=== PATIENT | female | born 1950 | race Caucasian/White ===

== ENCOUNTER → 2016-08-10 | Outpatient (CLI) | payer OTHER ==
--- NOTE | 2016-08-10 11:45 | BD ---
EXAMINATION TYPE: MG DEXA axial skeleton. DATE OF EXAM: 08/10/2016 9:05 AM COMPARISON: NONE CLINICAL HISTORY: Z78.0 POST MENOPAUSAL WITH OUT HRT Height: 50 Weight: 135 FRAX RISK QUESTIONS: Alcohol (3 or more units per day): NO Family History (Parent hip fracture): NO Glucocorticoids (More than 3mos): NO (Ex: prednisone, prednisolone, methylprednisolone, dexamethasone, and hydrocortisone). History of Fracture in Adulthood: NO Secondary Osteoporosis: NO 1. Type 1 Diabetes: NO 2. Hyperthyroidism: NO 3. Menopause before 45: YES 4. Malnutrition: NO 5. Chronic liver disease: NO Rheumatoid Arthritis: NO Current Tobacco Use: YES RISK FACTORS HISTORY OF: Family History of Osteoporosis: NO Smoke tobacco: YES, BUT CUTTING BACK Drink Alcohol: NO Active: NOT REALLY Diet low in dairy products/other sources of calcium: NO Postmenopausal woman: TOTAL HYST AT AGE 24 YRS Lost more than 2 inches in height since high school: YES Adrenal Insufficiency: NO MEDICATIONS: Additional Medications: BP MEDS, CALCIUM WITH D Additional History: HAD STROKE DECEMBER 2014 EXAM MEASUREMENTS: Bone mineral densitometry was performed using the [email or web address] System. Bone mineral density as measured about the Lumbar spine is: ----- L1-L4(G/cm2): 0.934 T Score Values are as follows: ----- L1: 0.0 ----- L2: -3.2 ----- L3: -2.4 ----- L4: -2.5 ----- L1-L4: -2.1 Bone mineral density IS HER FIRST BONE DENSITY SCAN FOR CASSANDRA BAEZ Bone mineral density about the R hip (g/cm2): 0.828 Bone mineral density about the L hip (g/cm2): 0.840 T Score values are as follows: -----R Neck: -1.5 -----L Neck: -1.4 -----R Intertrochanter: -1.9 -----L Intertrochanter: -1.7 Bone mineral density IS HER FIRST BONE DENSITY STUDY WITH CASSANDRA TELLO SANDSON FRAX %'S: FOR MAJOR OSTEOPOROTIC FX: 9.0%.....FOR HIP FX: 1.5% PROBABILITY OF FX IN 10 Y RS TIME IMPRESSION: Osteoporosis (T Score less than -2.5) as noted by T Score values at the There is increased fracture risk and therapy is usually indicated based on age. Re-Screen 1-2 years. FOR L2 OF HER SPINE NOTE: T-SCORE=SD OF THE YOUNG ADULT MEAN.
--- NOTE | 2016-08-11 11:08 | MM ---
Reason for exam: screening (asymptomatic). Last mammogram was performed 1 year and 1 month ago. History: Patient is postmenopausal and is nulliparous. Family history of breast cancer in maternal aunt, breast cancer in mother, and breast cancer in sister. Physical Findings: A clinical breast exam by your physician is recommended on an annual basis and results should be correlated with mammographic findings. MG Screening Mammo w CAD Bilateral CC and MLO view(s) were taken. Prior study comparison: July 14, 2015, bilateral MG 3d diag mammo w/cad SEBAS. January 18, 2014, bilateral MG screening mammo w CAD. The breast tissue is heterogeneously dense. This may lower the sensitivity of mammography. Finding: There are typically benign vascular, round, linear calcifications in both breasts. There is no discrete abnormality. ASSESSMENT: Benign, BI-RAD 2 RECOMMENDATION: Routine screening mammogram of both breasts in 1 year.
== END | disposition home or self-care (01) ==
LOC: RADMAMWWP 08:25
PROVIDERS: ATTEND Family Medicine
DX: Z12.31 Encounter for screening mammogram for malignant neoplasm of breast (principal); M81.0 Age-related osteoporosis without current pathological fracture; Z78.0 Asymptomatic menopausal state
CPT/HCPCS: 77080; G0202

== ENCOUNTER → 2016-09-25 | Outpatient (CLI) | payer OTHER ==
--- NOTE | 2016-09-26 15:50 | PE ---
EXAMINATION TYPE: PET CT fusion skull to thigh DATE OF EXAM: 09/25/2016 10:16 AM COMPARISON: Report from [facility] labeled with the patient's name dated 07/07/2016 Prior PET/CT: None at this location HISTORY: Abnormal chest CT right upper lobe TECHNIQUE: Following the intravenous administration of 15.37 mCi of F-18 FDG, whole body images are performed from the skull base to the midthigh. Images are reviewed on the computer in the coronal, a xial, and sagittal planes. Reconstructed rotating images are created on independent workstation and reviewed on the computer. A localization and attenuation correction CT is performed in conjunction with the PET scan. DLP: 3169 mGycm SCAN: Initial Scan Blood glucose: 88 mg/dL Average Mediastinum SUV: 1.5 Average Liver SUV: 2.1 FINDINGS: NECK: No abnormal uptake. THORAX: There is intermediate uptake in the section of pleural thickening with calcification in the p osterior right upper lobe. This has an SUV value 1.4. This is nonspecific. Findings are more suggesti ve for inflammatory process. Low metabolic activity neoplasm cannot be excluded. Monitoring is recomm ended with a follow-up CT recommended in 6 months. If there is change, repeat PET/CT could be perform ed. No abnormal mediastinal uptake is evident. ABDOMEN: No abnormal uptake PELVIS: No abnormal uptake OSSEOUS STRUCTURES: No abnormal uptake LOCALIZATION CT: The ascending thoracic aorta at the level of main pulmonary artery measures 3.4 cm. The main pulmonary artery bifurcation is 2.3 cm. Note is made of coronary artery calcification. Hiata l hernia is present. The thickening and calcification within the posterior right apex is evident measures approximately 2. 5 x 1.7 cm on the localization CT. COMPARISON: Images are unavailable. IMPRESSION: 1. Intermediate uptake within the area of pleural thickening and parenchymal density in the posterior right upper lobe with associated calcification. Findings are suggestive for an inflammatory process. Monitoring for stability is recommended with follow-up CT chest in 6 months. Should there be additio nal changes, repeat PET/CT could be that time.
== END | disposition home or self-care (01) ==
LOC: RADPETMAIN 07:08
PROVIDERS: ATTEND Family Medicine
DX: J92.9 Pleural plaque without asbestos (principal); J98.4 Other disorders of lung
CPT/HCPCS: 78815; A9552

== ENCOUNTER → 2016-10-19 | Outpatient (CLI) | payer OTHER ==
[2016-10-19 12:56] LABS: Blood Urea Nitrogen 14 mg/dL (7-17); Non-African American GFR(MDRD) 59 (>60 ml/min/1.73 sqM)
--- NOTE | 2016-10-19 14:22 | CT ---
EXAMINATION TYPE: CT angio abd aorta wo/w con DATE OF EXAM: 10/19/2016 2:02 PM HISTORY: atherosclerosis and abdominal aortic aneurysm per order. History of hypertension per patient . CT DLP: 1291mGycm Automated Exposure Control for Dose Reduction was Utilized. CONTRAST: CTA scan of the abdomen and pelvis is performed without oral and without and with IV Contrast, patien t injected with 80 mL of Visipaque 320. Three-D reconstructed images are created on independent works tation and reviewed. COMPARISON: Renal ultrasound October 03, 2015.. FINDINGS: VASCULAR: Noncontrast images show mild eccentric calcified plaque in the visualized descending thorac ic aorta. There is more moderate eccentric calcified plaque in the abdominal aorta with moderate to s evere calcified plaque extending into common as well as internal and external iliac arterial branch v essels. Calcified plaque extends to the common femoral arteries in the bilateral groin. There is no e vidence for greater than 3 cm aneurysm. There is more focal calcified lesion or plaque in the abdomin al aorta just pass near origin of the renal arteries seen best on axial image 31 noncontrast study ca using significant stenosis at this level. On sagittal images there is some low density in heterogeneo us calcification. This begins just above SMA origin. Lesion measures 3.1 cm in length on sagittal veronica ge 81 series 13 x 1.5 cm in AP diameter. Patent lumen is narrowed to 4mm at this level. No linear hyp odensity to suggest dissection is present. LUNG BASES: There is some right lateral basilar scarring. LIVER/GB: No significant abnormality is appreciated. PANCREAS: No significant abnormality is seen. SPLEEN: No significant abnormality is seen. ADRENALS: No significant abnormality is seen. KIDNEYS: There is asymmetric significant atrophy of the left kidney. There is probable significant st enosis at origin of left renal artery seen best on sagittal image 86. End-stage kidney is noted uncha nged from renal ultrasound October 03, 2015. BOWEL: A moderate size hiatal hernia is present. Sigmoid colonic diverticulosis is present. There is no CT evidence for acute diverticulitis. UTERUS/ADNEXA: Uterus is surgically absent or markedly atrophic in appearance. LYMPH NODES: No greater than 1cm abdominal or pelvic lymph nodes are appreciated. OSSEOUS STRUCTURES: There is healing mild to moderate compression type fracture anterior superior L1 endplate with lucency and sclerosis present, vacuum disc phenomenon in the adjacent disc space is not ed. OTHER: No significant additional abnormality is seen. IMPRESSION: 1. No abdominal aortic aneurysm. Moderate calcified plaque in the abdominal aorta with more moderate to severe plaque and iliac branch vessels of the pelvis. There is more focal prominent calcified lesi on probable plaque causing significant stenosis in the mid abdominal aorta from just above SMA origin through the origin of the bilateral renal arteries causing stenosis estimated 80% vascular lumen. A calcified mass or neoplasm is felt less likely but not entirely excluded given the eccentric prominen ce at this level. 2. There is asymmetric end-stage atrophy of left kidney redemonstrated. 3. Subacute or healing mild to moderate compression type fracture involving anterior superior L1 endp late is felt present.
== END | disposition home or self-care (01) ==
LOC: RADCTMAIN 12:17
PROVIDERS: ATTEND Thoracic Surgery (Cardiothoracic Vascular Surgery)
DX: I70.0 Atherosclerosis of aorta (principal); N26.1 Atrophy of kidney (terminal)
CPT/HCPCS: 82565; 84520; 75635; 36415; Q9967

== ENCOUNTER → 2016-12-29 | Outpatient (CLI) | payer OTHER ==
[2016-12-29 11:09] LABS: Blood Urea Nitrogen 12 mg/dL (7-17); Non-African American GFR(MDRD) 60 (>60 ml/min/1.73 sqM)
--- NOTE | 2016-12-29 12:00 | CT ---
EXAMINATION TYPE: CT chest w con DATE OF EXAM: 12/29/2016 COMPARISON: Previous PET CT scan dated 09/25/2016 HISTORY: Lung mass CT DLP: 227.70 mGycm Automated exposure control for dose reduction was used. CONTRAST: CT scan of the chest is performed with IV Contrast, patient injected with 100 ml mL of Omnipaque 300. FINDINGS: Partially calcified pleural based mass in the right upper lobe measures 2.5 x 2.7 cm on rec ent PET/CT today measures 2.9 x 2 cm. No other parenchymal nodules are seen. There is no significant axillary, internal mammary, mediastinal or hilar adenopathy. There is no pleu ral or pericardial fluid. The heart is not enlarged. There is a moderate hiatal hernia present. There is atrophy of the left kidney. Visualized portions o f the upper abdomen are otherwise unremarkable. There is mild hypertrophic spondylosis within the spine. IMPRESSION: QUESTIONABLE MILD ENLARGEMENT IN THE PATIENT'S PLEURAL-BASED RIGHT UPPER LOBE MASS.
== END | disposition home or self-care (01) ==
LOC: RADCTMAIN 10:27
PROVIDERS: ATTEND Thoracic Surgery (Cardiothoracic Vascular Surgery)
DX: R91.8 Other nonspecific abnormal finding of lung field (principal)
CPT/HCPCS: 82565; 84520; 71260; Q9967

== ENCOUNTER → 2017-04-05 | Outpatient (CLI) | payer OTHER ==
[2017-04-05 08:50] LABS: Blood Urea Nitrogen 14 mg/dL (7-17); Non-African American GFR(MDRD) 55 (>60 ml/min/1.73 sqM)
--- NOTE | 2017-04-05 09:57 | CT ---
EXAMINATION TYPE: CT chest w con DATE OF EXAM: 04/05/2017 COMPARISON: 12/29/2016 HISTORY: Patient has no complaints at time of study. Follow up study for known lung mass. CT DLP: 448 mGycm Automated exposure control for dose reduction was used. CONTRAST: CT scan of the chest is performed with IV Contrast, patient injected with 80 mL of Visipaque 320. FINDINGS: LUNGS: Partially calcified pleural based mass in the right upper lobe measures and previously measure d 2.5 x 2.7 cm and is stable in size . No other parenchymal nodules are seen. Underlying emphysematou s changes are noted there is pleural-based thickening. Within the lingular segment left upper lobe there is a stable appearing 3 mm pulmonary nodule pleural thickening and linear scar or atelectasis at both lung bases greater on the right is stable. 5 mm no dule medial aspect left lung base stable. MEDIASTINUM: There are no greater than 1 cm hilar or mediastinal lymph nodes. No pericardial effusi on is seen. Coronary artery calcification noted. Aorta of normal caliber with mild atherosclerotic c hanges. OTHER: Hiatal hernia noted. Hypertrophic change of the spine seen. Left kidney is atrophic and there is a less than 5 mm hypodensity involving the right kidney too small to characterize. There is irreg ular atherosclerotic plaque involving the distal thoracic aorta stable previous exam with more high-g rade stenosis seen in the upper abdominal aorta with near this appears retrospectively stable. Chroni c appearing moderate superior endplate compression deformity near the thoracolumbar junction IMPRESSION: 1. Stable calcified pleural-based mass right upper lobe unchanged from the previous exam. Additional 5 mm less pulmonary nodules are also stable. 2. Severe atherosclerotic change with near complete occlusion of the upper abdominal aorta stable fro m previous exam. This is at the level of the SMA and just distal to the SMA. Correlate clinically. 3. Markedly atrophic left kidney with compensatory hypertrophy of the right kidney. This may be secon turner to the severe atherosclerotic changes of the aorta and left renal artery. Correlate clinically.
== END | disposition home or self-care (01) ==
LOC: RADCTMAIN 08:17
PROVIDERS: ATTEND Thoracic Surgery (Cardiothoracic Vascular Surgery)
DX: I70.0 Atherosclerosis of aorta (principal); G12.9 Spinal muscular atrophy, unspecified; I70.1 Atherosclerosis of renal artery; J94.8 Other specified pleural conditions
CPT/HCPCS: 82565; 84520; 71260; 36415; Q9967

== ENCOUNTER → 2017-05-25 | Outpatient (CLI) | payer OTHER ==
--- NOTE | 2015-10-09 09:37 | WWHP ---
DATE OF SERVICE: 10/08/2015 CHIEF COMPLAINT: The patient is here for her routine gynecologic exam. HPI: This is a 65-year-old G0 with an LMP of approximately 1981. She had a ALE/BSO at that time for benign reasons. The patient did use ERT for about one year after her hysterectomy. Her last pelvic exam was in 2007. The patient is without gynecologic complaints. PAST MEDICAL HISTORY: Chronic hypertension and CVA in 12/2014. She does have some residual right arm weakness making it difficult for her to write. Dr. Carrie Ornelas is her primary care physician. MEDICATIONS: None. She states she was taken off of her blood pressure medications about 2 weeks ago. Allergies to CODEINE, which caused red blotching of the skin. PAST SURGICAL HISTORY: ALE/BSO with appendectomy in 1981, ear surgery in the past, benign lung mass was removed in the , tonsillectomy at age 7, D&C in the , colonoscopy in 2007. 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 She did have some type of STD in the and she believes it may have been gonorrhea. She denies any other STDs. SOCIAL HISTORY: She has been a long-time smoker, but quit 4 months ago. She denies alcohol and drug use. She is a . She does have a boyfriend and has been with him for about 3 months and has been sexually active. She does not live with him. She does not work outside the home. FAMILY HISTORY: Mother had diabetes, heart attack and gastric cancer. Father had a brain tumor. Paternal grandfather had colon cancer. REVIEW OF SYSTEMS: Weight has been stable. She denies respiratory or cardiac problems. GI: Occasional constipation. PHYSICAL EXAM: Blood pressure 166/91. Height 5 feet 0 inches. Weight 127 pounds. Temperature 98.3, pulse 86. This is a well-developed, well-nourished white female who is alert and oriented x3 in no acute distress. HEENT is within normal limits. NECK: Supple without mass or thyromegaly. CHEST AND LUNGS: Clear to auscultation. HEART: Regular rate and rhythm. Breasts are without mass or discharge. Axillary exam is negative for adenopathy. BACK: Negative for CVA tenderness. ABDOMEN: Soft, nontender, without palpable masses. PELVIC EXAM: External genitalia reveals mild to moderate atrophy without lesions. Vagina appears normal. There is no significant prolapse. There are no palpable pelvic masses. Rectovaginal exam is negative for mass or tenderness and stool is negative for occult blood. EXTREMITIES: Nontender. IMPRESSION: 1. A 65-year-old menopausal female who is status post ALE/BSO for benign reasons. 2. History of chronic hypertension with elevated blood pressure. PLAN: 1. Pap smears have been discontinued. 2. Self breast examination was discussed. 3. Mammogram will be due in 07/09 and a slip was given to patient for this. 4. She is aware her blood pressure being elevated and I have recommended that she contact Dr. Carrie Ornelas today to discuss her blood pressure and to be possibly placed back on blood pressure medications. 5. Osteoporosis prevention was discussed. I have also recommended screening bone density test since it has been many years since she has last had this done and a slip was given to the patient for this. 6. She will return in one year. MARILEE
--- NOTE | 2015-10-09 10:14 | WWPLE ---
October 08, 2015 Dr. Piotr Norton RE: Katya Osman Dear Dr. Piotr Norton. I had the pleasure of meeting your patient, Katya Nixon today. As you know, she is a 65-year-old female who presented to me for her routine gynecologic exam. She states it has been about 8 years since her last pelvic exam. She is status post ALE/BSO in approximately 1981 and this was done for benign reasons. Her pelvic examination was unremarkable. Pap smears have been discontinued; however, I still would recommend yearly gynecologic exam. Stool was tested for occult blood, and this was negative today. She will not be due for mammogram until June of this year, since she had a normal one in June 2015. We have discussed osteoporosis prevention and I have recommended bone density screening and a slip was given to patient for this. Her blood pressure was elevated today and was 166/91. She states she has been off of blood pressure medication over the last 2 weeks. I have asked her to contact your office today to further discuss her elevated blood pressure and for possible treatment. Thank you for allowing me to participate in the care of your patient. Please do not hesitate to call if your have questions. Sincerely, Abiel Mcgee MD
--- NOTE | 2017-05-25 08:51 | WWHP ---
[facility] - HISTORY AND PHYSICAL DATE OF SERVICE: 05/25/2017 CHIEF COMPLAINT: The patient is here for her routine gynecologic exam. HPI: This is a 66-year-old G0 with an LMP of 1981. She is status post ALE/BSO for benign reasons. She is without gynecologic complaints. PAST MEDICAL HISTORY: Chronic hypertension, CVA in 2014, which did leave some residual right arm weakness. She also has a history of osteopenia diagnosed by bone density testing in 07/2016. MEDICATIONS: 1. Losartan. 2. Potassium 25 mg daily. 3. Amlodipine besylate 10 mg 1 daily. 4. Atorvastatin 10 mg daily. 5. Aspirin 81 mg 1 daily. 6. Omeprazole 20 mg 1 daily. 7. Coreg 12.5 mg 1 b.i.d. 8. Potassium chloride ER 10 mEq daily. 9. Vitamin D3 two thousand units 1 daily. 10.Ferrous sulfate 325 mg 1 b.i.d. 11.Hydrochlorothiazide 12.5 mg 1 daily. 12.Fosamax 70 mg 1 every week. ALLERGIES: CODEINE. PAST SURGICAL HISTORY: ALE/BSO with appendectomy in 1981, ear surgery, benign lung mass removed, tonsillectomy, D&C, colonoscopy in 2007 and 2015. 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 She believes she had a gonorrhea in the 1970s. She denies any other STDs. SOCIAL HISTORY: She quit smoking in 10/2016 and denies alcohol and drug use. She is a and has been with her boyfriend since early in 2016. She is sexually active. FAMILY HISTORY: Mother had diabetes, heart attack, and gastric cancer. Father had a brain tumor and a paternal grandfather had colon cancer. REVIEW OF SYSTEMS: She has gained about 8 pounds over the last year. She denies respiratory, cardiac or GI problems. PHYSICAL EXAM: Blood pressure 148/80, height 5 feet 1 inch, weight 135 pounds, temperature 98.3, pulse 68. This is a well-developed, well-nourished, white female, who is alert and oriented x3, in no acute distress. HEENT is within normal limits. NECK: Supple without mass or thyromegaly. CHEST AND LUNGS: Clear to auscultation. HEART: Regular rate and rhythm. Breasts are without mass or discharge. Axillary exam is negative for adenopathy. BACK: Negative for CVA tenderness. ABDOMEN: Soft, nontender, without palpable masses. PELVIC EXAM: External genitalia reveals [id number] atrophy without lesions. Vagina reveals [id number] atrophy without lesions. There is no evidence of prolapse. Bimanual exam is negative for mass or tenderness. A rectal exam was refused by the patient. EXTREMITIES: Nontender. IMPRESSION: 1. A 66-year-old menopausal female, status post total abdominal hysterectomy, bilateral salpingo-oophorectomy for benign reasons with normal gynecologic exam. 2. History of osteopenia, on Fosamax. 3. History of multiple medical problems. PLAN: 1. Pap smears have been discontinued. 2. Self breast examination was discussed. 3. Mammogram will be due after 08/11/2017 and a slip was given to the patient for this. 4. Osteoporosis management was discussed with the patient. I have stressed the importance of adequate calcium, vitamin D and regular exercise. She will continue the Fosamax as prescribed by her primary care physician. 5. She will return in 1 year. MMODL / IJN: [id number] /
== END | disposition home or self-care (01) ==
LOC: WWCWWP 07:07
PROVIDERS: ATTEND Obstetrics & Gynecology
DX: Z01.419 Encounter for gynecological examination (general) (routine) without abnormal findings (principal)

== ENCOUNTER → 2017-10-05 | Outpatient (CLI) | payer OTHER ==
--- NOTE | 2017-10-10 10:24 | MM ---
Reason for exam: screening (asymptomatic). Last mammogram was performed 1 year and 2 months ago. History: Patient is postmenopausal and is nulliparous. Family history of breast cancer in maternal aunt, breast cancer in mother, and breast cancer in sister. Physical Findings: A clinical breast exam by your physician is recommended on an annual basis and results should be correlated with mammographic findings. MG 3D Screening Mammo W/Cad Bilateral CC and MLO view(s) were taken. Prior study comparison: August 10, 2016, bilateral MG screening mammo w CAD. July 14, 2015, bilateral MG 3d diag mammo w/cad SEBAS. The breast tissue is heterogeneously dense. This may lower the sensitivity of mammography. No significant changes when compared with prior studies. ASSESSMENT: Negative, BI-RAD 1 RECOMMENDATION: Routine screening mammogram of both breasts in 1 year.
== END | disposition home or self-care (01) ==
LOC: RADMAMWWP 07:51
PROVIDERS: ATTEND Obstetrics & Gynecology
DX: Z12.31 Encounter for screening mammogram for malignant neoplasm of breast (principal)
CPT/HCPCS: 77063; 77067

== ENCOUNTER → 2017-10-11 | Outpatient (CLI) | payer MEDICARE, OTHER ==
--- NOTE | 2017-10-11 13:05 | CT ---
EXAMINATION TYPE: CT chest abdomen w con DATE OF EXAM: 10/11/2017 COMPARISON: CT chest April 05, 2017. CTA aorta October 19, 2016. PET CT September 25, 2016 HISTORY: Follow up to lung mass, history of partial Rt lung removal CT DLP: 431.4 mGycm. Automated Exposure Control for Dose Reduction was Utilized. CONTRAST: CT scan of the thorax and abdomen are performed with oral and with IV Contrast, patient injected with 100 mL of Omnipaque 300. FINDINGS: LUNGS: There is persistent elevated right hemidiaphragm with pleural thickening which correlates with history of partial pneumonectomy. There is background of moderate emphysematous change. Irregular pa rtially calcified posterior right upper lung area axial image 16 is unchanged from prior studies stefany uring 2.4 x 1.4 cm axial image 15. This likely reflects postsurgical scar based on stability and mild hypermetabolic uptake PET/CT less than 2.5 max SUV. No new nodule or mass is present. Right lateral chest wall defect axial image 24 is stable. No pleural effusion or pneumothorax is seen. MEDIASTINUM: There are no greater than 1 cm hilar or mediastinal lymph nodes. No cardiomegaly or pe ricardial effusion is seen. OTHER: No additional significant abnormality is seen. LIVER/GB: No significant abnormality is appreciated. PANCREAS: No significant abnormality is seen. SPLEEN: No significant abnormality is seen. ADRENALS: No significant abnormality is seen. KIDNEYS: There is asymmetric end-stage atrophied left kidney redemonstrated. No or delayed excretion is seen on delayed phased images. BOWEL: There is small to moderate size hiatal hernia redemonstrated. LYMPH NODES: No greater than 1cm abdominal lymph nodes are appreciated. OSSEOUS STRUCTURES: Moderate to severe mixed plaque in the abdominal aorta is redemonstrated. OTHER: No significant additional abnormality is seen. IMPRESSION: Overall stable findings, no new areas of suspicious hypermetabolic uptake to suggest recu rrent malignancy.
== END | disposition home or self-care (01) ==
LOC: RADCTMAIN 06:30
PROVIDERS: ATTEND Thoracic Surgery (Cardiothoracic Vascular Surgery)
DX: R91.8 Other nonspecific abnormal finding of lung field (principal)
CPT/HCPCS: 82565; 84520; 71260; 74160; 36415; Q9967

== ENCOUNTER → 2018-05-16 | Outpatient (CLI) | payer MEDICARE, OTHER ==
--- NOTE | 2018-05-16 09:28 | CT ---
EXAMINATION TYPE: CT chest w con DATE OF EXAM: 05/16/2018 COMPARISON: 10/11/2017 and 04/05/2017 HISTORY: 67-year-old female Lung mass TECHNIQUE: Contiguous axial scanning of the chest after the administration of 100 ml mL of Isovue 300 . Coronal/sagittal reconstructions performed. CT DLP: 244.30mGycm. Automatic exposure control utilized for a dose reduction. FINDINGS: Heart normal size without pericardial effusion. Mild coronary vessel calcifications are present. Aorta normal caliber with conventional arch vessel branching anatomy. No thoracic lymphadenopathy by CT size criteria. There is stable irregular pleural based mass along the posterior right upper lobe adjacent to the min or fissure measuring 2.6 cm wide versus 2.8 cm on 04/05/2017. Internal calcifications are present and there is some strandy opacities and bronchi extending to this region. Mild emphysematous change is noted. Pleural parenchymal scarring at the right base with chronic tethering of the lateral right hemidiaphr agm. No consolidation or pleural effusion. There is a moderate-sized hilar hernia redemonstrated with a stable 6 mm lower left paraesophageal ly mph node. Atrophic left kidney redemonstrated along with severe atherosclerotic changes focally in the upper ab dominal aorta narrowing the patent lumen considerably to a slitlike appearance, reference axial image 61. Bones: Endplate spondylosis mid to lower thoracic spine. Mild superior endplate compression deformity of L1 is unchanged and chronic. IMPRESSION: 1. Stable, partially calcified, irregular pleural based mass posterior right upper lobe abutting the major fissure. Approximately 1 1/2 years of stability suggests a benign etiology such as pleural pare nchymal scarring or rounded atelectasis. Consider an additional one-year follow-up to document over 2 years of stability. 2. COPD with mild emphysema and chronic pleural parenchymal scarring at the right base. 3. Moderate-sized hiatal hernia. 4. Redemonstrated severe atherosclerotic changes upper abdominal aorta narrowing a short segment of t he aorta to a slitlike configuration. Atrophic left kidney possibly due to chronic renal artery steno sis.
== END ==
LOC: RADCTMAIN 07:19
PROVIDERS: ATTEND Thoracic Surgery (Cardiothoracic Vascular Surgery)
DX: R91.8 Other nonspecific abnormal finding of lung field (principal); J43.9 Emphysema, unspecified; J98.4 Other disorders of lung
CPT/HCPCS: 82565; 84520; 71260; 36415; Q9967

== ENCOUNTER → 2018-10-17 | Outpatient (CLI) | payer MEDICARE, OTHER ==
[2018-10-17 10:15] VITALS: BP 134/82; PULSE 84; RESP 16; TEMP 97.2; BMI 27.8
--- NOTE | 2018-10-17 10:57 | P.HPOB ---
History of Present Illness H&P Date: 10/17/18 Chief Complaint: The patient is here for her routine gynecologic exam and ma mmogram. This is a 68-year-old G0 with an LMP of 1981. She is status post ALE BSO for benign reasons. The patient is without gynecologic complaints. Review of Systems She is getting about 12 pounds over the last 1 1/2 years. She denies respiratory, cardiac and G.I. problems. She denies maltreatment or problems with falling. : occasional small urinary leakage. Past Medical History Past Medical History: CVA/TIA, GERD/Reflux, Hyperlipidemia, Hypertension, Osteoarthritis (OA), Pneumonia Additional Past Medical History / Comment(s): CVA (DECEMBER 2014)- WEAKNESS RIGHT HAND, PNEUMONIA (2014), CONSTIPATION, BACK PAIN, OVERACTIVE BLADDER, STRESS INCONTINENCE. Osteoporosis(L2). 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 ALE BSO for benign reasons. History of Any Multi-Drug Resistant Organisms: None Reported Past Surgical History: Adenoidectomy, Ear Surgery, Hysterectomy, Tonsillectomy Additional Past Surgical History / Comment(s): BSO, later ALE. Lung biopsy- rt upper lobectomy for mass that turned out to be benign, egd/colonosopy, lt eardrum repair., cataracts, D&C. Colonoscopy 2016(2nd,next 5yrs). 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 Smoking Status: Former smoker (Quit 2016) Past Alcohol Use History: None Reported Additional Past Alcohol Use History / Comment(s): STARTED SMOKING AGE 16, SMOKED 1PPD. QUIT 3 MONTHS AGO. SMOKED FOR 49 YEARS. Past Drug Use History: None Reported Additional History: She is a and also her boyfriend in 2019. She is not seeing anybody at this time. - Past Family History Father Family Medical History: Cancer Additional Family Medical History / Comment(s): from brain tumor age 53. Paternal grandfather head colon CA. Mother Family Medical History: Cancer, Diabetes Mellitus, Myocardial Infarction (MD) Additional Family Medical History / Comment(s): stomach cancer Sister(s) Family Medical History: Cancer Additional Family Medical History / Comment(s): breast cancer Medications and Allergies Home Medications Medication Instructions Recorded Confirmed Type Aspirin EC [Ecotrin] 325 mg PO DAILY #30 tablet. 01/17/15 10/17/18 Rx Atorvastatin [Lipitor] 20 mg PO HS #30 tab 01/17/15 10/17/18 Rx Hydrochlorothiazide [Hydrodiuril] 12.5 mg PO DAILY #30 tab 01/17/15 10/17/18 Rx amLODIPine [Norvasc] 10 mg PO DAILY #30 tab 01/17/15 10/17/18 Rx Cholecalciferol [Vitamin D3] 5,000 unit PO DAILY 12/12/15 10/17/18 History Lisinopril [Zestril] 5 mg PO DAILY 12/12/15 10/17/18 History Ranitidine 125 Mg 125 mg PO DIRECTED PRN 12/12/15 10/17/18 History Allergies Allergy/AdvReac Type Severity Reaction Status Date / Time codeine Allergy Unknown Rash/Hives Verified 10/17/18 10:16 niacin Allergy Rash/Hives Verified 10/17/18 10:16 Exam Vital Signs Temp Pulse Resp BP Pulse Ox 10/17/18 10:04 97.2 F L 84 16 134/82 97 Intake and Output 10/16/18 10/17/18 10/17/18 22:59 06:59 14:59 Other: Weight 66.678 kg Height 5'1", weight 147 pounds, BMI 27.8. This is a well-developed well-nourished white female who is alert and oriented times 3 in no acute distress. HEENT: Within normal limits. NECK: Supple without mass or thyromegaly. CHEST AND LUNGS: Clear to auscultation. HEART: Regular rate and rhythm. BREASTS: Are without mass or discharge. AXILLARY EXAM: Negative for adenopathy. BACK: Negative for CVA tenderness. ABDOMEN: Soft, nontender, without palpable masses. PELVIC EXAM: External genitalia appears normal with mild to moderate atrophy. Vagina appears normal with mild to moderate atrophy. There is no evidence of prolapse. Bimanual examination is negative for mass or tenderness. RECTAL EXAM: Rectovaginal exam is negative for mass or tenderness and is negative for occult blood. EXTREMITIES: Nontender. IMPRESSION: 1. 68-year-old menopausal female who is status post ALE and BSO for benign reasons with normal gynecologic exam. 2. History of osteoporosis, on Fosamax. PLAN: 1. Pap smears have been discontinued. 2. Self breast awareness was discussed with the patient. 3. Screening mammogram will be done today. 4. Osteoporosis management was discussed with the patient. I have stressed the importance of adequate calcium, vitamin D and regular exercise. Recommended amounts of calcium and vitamin D were also discussed. She will continue on Fosamax as prescribed by her primary care physician. 5. She did receive a flu shot this past fall. 6. She was advised to return in one year for her annual well woman exam.
--- NOTE | 2018-10-17 13:08 | BD ---
EXAMINATION TYPE: Axial Bone Density DATE OF EXAM: 10/17/2018 COMPARISON: 08.10.2016 CLINICAL HISTORY: 68 YR OLD FEMALE....ICD-10 CODE: Z78.0 POST MENOPAUSAL W/O HRT Height: 60.2 Weight: 144 FRAX RISK QUESTIONS: Glucocorticoids (More than 3mos): YES (Ex: prednisone, prednisolone, methylprednisolone, dexamethasone, and hydrocortisone). History of Fracture in Adulthood: Secondary Osteoporosis: YES 3. Menopause before 45: YES Current Tobacco Use: STOPPED 1 YR AGO RISK FACTORS HISTORY OF: HX OF BOTH ANKLES BROKEN...< AGE 52 YRS OLD Active: YES Diet low in dairy products/other sources of calcium: NO MILK Postmenopausal woman: HYST AT AGE 24 YRS OLD Lost more than 2 inches in height since high school: YES MEDICATIONS: Prednisone or other steroids: ALBUTERAL 3X DAILY, ASTHMA AND EMPHYSEMA, How Lon YR Additional Medications: BP MEDS, CALCIUM AND VIT D SUPP., REFLUX MEDS, STATIN FOR CHOLESTEROL, Additional History: ASTHMA, EMPHYSEMA, HYPERTENSION, REFLUX AND CHOLESTEROL EXAM MEASUREMENTS: Bone mineral densitometry was performed using the [employer] System. Bone mineral density as measured about the Lumbar spine is: ----- L1-L4(G/cm2): 0.982 T Score Values are as follows: ----- L1: 0.0 ----- L2: -2.5 ----- L3: -2.2 ----- L4: -1.8 ----- L1-L4: -1.6 Bone mineral density has: Increased 7.0% SINCE 08.10.2016 SCAN Bone mineral density about the R hip (g/cm2): 0.848 Bone mineral density about the L hip (g/cm2): 0.837 T Score values are as follows: -----R Neck: -1.4 -----L Neck: -1.5 -----R Total: -1.3 -----L Total: -1.4 Bone mineral density has: Increased 2.6% SINCE 08.10.2016 SCAN FRAX%s: THERE IS A 14.2% CHANCE FOR A MAJOR OSTEOPOROTIC FX AND A 1.8% FOR HIP ....PROBABILITY OF F X IN 10 YRS TIME IMPRESSION: Osteopenia (T Score between -2.5 and -1). Values approach osteoporosis within the lumbar spine. There is slightly increased risk of fracture and the patient may be considered for treatment. Re-Screen 2-5 years. NOTE: T-SCORE=SD OF THE YOUNG ADULT MEAN.
--- NOTE | 2018-10-17 13:33 | MM ---
Reason for exam: screening (asymptomatic). Last mammogram was performed 1 year ago. History: Patient is postmenopausal and is nulliparous. Family history of breast cancer in maternal aunt, breast cancer in mother, and breast cancer in sister at age 55. Physical Findings: A clinical breast exam by your physician is recommended on an annual basis and results should be correlated with mammographic findings. MG 3D Screening Mammo W/Cad Bilateral CC and MLO view(s) were taken. Prior study comparison: October 05, 2017, bilateral MG 3d screening mammo w/cad. August 10, 2016, bilateral MG screening mammo w CAD. The breast tissue is heterogeneously dense. This may lower the sensitivity of mammography. Benign appearing bilateral calcifications. Upper inner quadrant and lower inner quadrant distortion on the right at middle depth. ASSESSMENT: Incomplete: need additional imaging evaluation, BI-RAD 0 RECOMMENDATION: Special view mammogram of the right breast. If lesion persists on supplemental views, image directed ultrasound is recommended. [facility] will attempt to contact patient to return for supplemental views and ultrasound if indicated.
--- NOTE | 2018-10-18 09:21 | P.PN ---
Progress Note - Text Progress Note Date: 10/18/18 OUTPATIENT FOLLOW-UP NOTE TEST(S)/RESULTS: bone density from 10/17/2018 shows osteopenia with increases in the vertebrae and hips by 7% and 2.6% respectively. The screening mammogram is requesting a right breast workup. METHOD OF NOTIFICATION: the patient was notified by phone. PATIENT COMMENTS: she has been taking Fosamax 70 mg weekly for osteoporosis. DIAGNOSIS: history of osteoporosis on Fosamax with bone density improvement. Incomplete screening mammogram requesting right breast workup. DISCUSSION: the patient is asking to make the appointment for her right breast workup. PLAN: the patient will be called to schedule the right breast workup. She will continue to Fosamax as directed. She will return in one year for her well woman exam.
== END ==
LOC: WWCWWP 09:42
PROVIDERS: ATTEND Obstetrics & Gynecology
DX: Z12.31 Encounter for screening mammogram for malignant neoplasm of breast (principal); M85.80 Other specified disorders of bone density and structure, unspecified site; M81.0 Age-related osteoporosis without current pathological fracture
CPT/HCPCS: 77063; 77067; 77080

== ENCOUNTER → 2018-10-20 | Outpatient (CLI) | payer MEDICARE, OTHER ==
--- NOTE | 2018-10-20 13:40 | MM ---
Reason for exam: additional evaluation requested from abnormal screening. Last mammogram was performed less than 1 month ago. History: Patient is postmenopausal and is nulliparous. Family history of breast cancer in maternal aunt, breast cancer in mother, and breast cancer in sister at age 55. Physical Findings: Nurse did not find any significant physical abnormalities on exam. MG 3D Work Up W/Cad RT CC and MLO view(s) were taken of the right breast. Prior study comparison: October 17, 2018, bilateral MG 3d screening mammo w/cad. October 05, 2017, bilateral MG 3d screening mammo w/cad. The breast tissue is heterogeneously dense. This may lower the sensitivity of mammography. Persistent distortion upper inner quadrant at two locations, middle depth, both 3.5cm from nipple. These results were verbally communicated with the patient and result sheet given to the patient on 10/20/18. ASSESSMENT: Incomplete: need additional imaging evaluation, BI-RAD 0 RECOMMENDATION: Ultrasound of the right breast. (attention upper inner quadrant)
--- NOTE | 2018-10-20 13:43 | USB ---
Reason for exam: additional evaluation requested from abnormal screening. History: Patient is postmenopausal and is nulliparous. Family history of breast cancer in maternal aunt, breast cancer in mother, and breast cancer in sister at age 55. US Breast Workup Limited RT Right limited breast ultrasound including focal area of concern, retroareolar and axilla demonstrates a 0.5 x 0.5 x 0.5cm irregular, angular, hypoechoic lesion at 1 o'clock and a 0.5 x 0.5 x 0.5cm irregular, angular, hypoechoic lesion at 1 o'clock. Highly suspicious on mammogram, corresponds with mammographic findings. These results were verbally communicated with the patient and result sheet given to the patient on 10/20/18. ASSESSMENT: Highly suggestive of malignancy, BI-RAD 5 RECOMMENDATION: Ultrasound core biopsy of the right breast. Called Dr. Mcgee with mammographic findings and has scheduled an appointment for the patient for 11/16/18 at 11:[address] De La Vega. Biopsy scheduled for 10/30/18 at 12:20. PRELIMINARY REPORT CALLED AND FAXED TO DR. DE LA VEGA ON 10/20/18.
== END | disposition home or self-care (01) ==
LOC: RADMAMWWP 09:59
PROVIDERS: ATTEND Obstetrics & Gynecology
DX: R92.8 Other abnormal and inconclusive findings on diagnostic imaging of breast (principal)
CPT/HCPCS: 77065; 76642; G0279; 77061

== ENCOUNTER → 2018-10-25 | Day surgery (SDC) | payer MEDICARE, OTHER ==
[2018-10-25 13:15] VITALS: RESP 16; BMI 58.7
--- NOTE | 2018-10-25 15:24 | USB ---
ULTRASOUND GUIDED CORE BIOPSY OF THE RIGHT BREAST NODULES: CLINICAL HISTORY: Request for core biopsy of 2 separate 1:00 lesions within the right breast measuring approximately 5 mm each. FINDINGS: The procedure was explained to the patient. The risks, complications, benefits and alternatives were discussed and any questions were answered. Informed consent was obtained. Patient was placed supine on the ultrasound table and prepped and draped in the usual sterile fashion. Utilizing a 16-gauge core biopsy needle, 4 passes were made into each of the two right requested breast nodules at the 1:00 position. Surgical clips was placed post procedure. Postprocedural mammogram demonstrates the clip to be in ideal position. Patient was stable throughout the procedure. Pathology is pending. All elements of maximal barrier and sterile technique were utilized. IMPRESSION: 1. Successful ultrasound guided core biopsy of two separate 1:00 lesions within the right breast. Pathology Results: Malignant A. RIGHT BREAST, SITE A ONE O'CLOCK, ULTRASOUND GUIDED CORE BIOPSY: Fibrocystic changes with fibrosis/scar and adenosis. See Comment. B. 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 See Surgical Pathology Cancer Case Summary. Recommendation Surgical consult of the right breast. (site B) CLAUDETTED
[2018-10-25 15:34] VITALS: BP 153/81; PULSE 64; TEMP 98.1
--- NOTE | 2018-10-26 08:28 | MM ---
Reason for exam: additional evaluation requested from abnormal screening. Last mammogram was performed less than 1 month ago. History: Patient is postmenopausal and is nulliparous. Family history of breast cancer in maternal aunt, breast cancer in mother, and breast cancer in sister at age 55. MG Diagnostic Mammo RT Wo CAD CC and LM view(s) were taken of the right breast. Prior study comparison: October 20, 2018, right breast MG 3d work up w/cad RT. October 17, 2018, bilateral MG 3d screening mammo w/cad. ASSESSMENT: Post procedure mammogram for marker placement RECOMMENDATION: Ultrasound of the right breast in 6 months. PENDING PATHOLOGY RESULTS.
== END | disposition home or self-care (01) ==
LOC: RADUSWWP 12:46
PROVIDERS: ATTEND Surgery
DX: C50.911 Malignant neoplasm of unspecified site of right female breast (principal); N60.21 Fibroadenosis of right breast; N60.31 Fibrosclerosis of right breast; Z88.5 Allergy status to narcotic agent; Z88.8 Allergy status to other drugs, medicaments and biological substances; Z78.0 Asymptomatic menopausal state; Z80.3 Family history of malignant neoplasm of breast
CPT/HCPCS: 88305; 88342; 88341; 77065; 19083; 19084; A4648

== ENCOUNTER 2018-11-21 10:14 | Day surgery (SDC) | payer MEDICARE ==
[2018-11-20 10:18] VITALS: BMI 26.4
--- NOTE | 2018-11-20 16:59 | P.GSHP ---
History of Present Illness H&P Date: 11/21/18 Chief Complaint: Right breast cancer 68-year-old female seen in the office complaining of a recent lesion identified in the right breast upper inner quadrant. Both mammogram and ultrasound considered this to be BIRADS 5. Patient has history of chronic bilateral breast pain although states it has been better lately. She is otherwise asymptomatic. Family history of breast cancer in her mother, 2 sisters, and aunt. Ultrasound core biopsy was obtained of 2 separate lesions. Only one of the lesions was positive for malignancy. Pathology showed invasive ductal cancer ER/IA positive HER-2/arielle negative. Films reviewed with radiology. Lesions within approximately 1-2 cm of each other. Both lesions highly suspicious radiographically and after reviewing films with radiology we have decided to localize both areas. Patient was sent for oncology evaluation. Her sister is currently undergoing chemotherapy by oncology. Apparently blood was drawn for genetic testing which we requested however the patient has not decided yet if she is going to pay the deductible for the genetic screening to be performed. She would like to proceed with breast conservation therapy at this time despite not having all were genetic testing back yet. Past Medical History Past Medical History: CVA/TIA, GERD/Reflux, Hyperlipidemia, Hypertension, Osteoarthritis (OA), Pneumonia, Renal Disease Additional Past Medical History / Comment(s): CVA (DECEMBER 2014)- WEAKNESS RIGHT HAND, STRESS INCONTINENCE. Osteoporosis(L2). 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 HX OF TB IN , states has one kidney not functioning, unsure if defect History of Any Multi-Drug Resistant Organisms: None Reported Past Surgical History: Adenoidectomy, Breast Surgery, Ear Surgery, Hysterectomy, Tonsillectomy Additional Past Surgical History / Comment(s): right breast bx, BSO, later ALE. Lung biopsy- rt upper lobectomy for mass that turned out to be benign, egd/colonosopy, lt eardrum repair., cataracts, D&C. Past Anesthesia/Blood Transfusion Reactions: No Reported Reaction Smoking Status: Former smoker - Past Family History Father Family Medical History: Cancer Additional Family Medical History / Comment(s): from brain tumor age 53. Paternal grandfather head colon CA. Mother Family Medical History: Cancer, Diabetes Mellitus, Myocardial Infarction ([place]) Additional Family Medical History / Comment(s): stomach cancer Sister(s) Family Medical History: Cancer Additional Family Medical History / Comment(s): x2 breast cancer Medications and Allergies Home Medications Medication Instructions Recorded Confirmed Type amLODIPine [Norvasc] 10 mg PO DAILY #30 tab 01/17/15 11/20/18 Rx Alendronate Sodium 70 mg PO WEEKLY 10/23/18 11/20/18 History Aspirin [Adult Low Dose Aspirin EC] 81 mg PO DAILY 10/23/18 11/20/18 History Atorvastatin [Lipitor] 40 mg PO DAILY 10/23/18 11/20/18 History Carvedilol 12.5 mg PO BID 10/23/18 11/20/18 History Ferrous Sulfate [Feosol] 325 mg PO BID 10/23/18 11/20/18 History Ipratropium Nebulized [Atrovent 0.5 mg INHALATION Q6HR 10/23/18 11/20/18 History Nebulized 0.2 MG/ML] Losartan Potassium [Cozaar] 25 mg PO DAILY 10/23/18 11/20/18 History Omeprazole 20 mg PO DAILY 10/23/18 11/20/18 History Potassium Chloride [Klor-Con 10] 10 meq PO BID 10/23/18 11/20/18 History Allergies Allergy/AdvReac Type Severity Reaction Status Date / Time codeine Allergy Unknown Rash/Hives Verified 11/20/18 10:12 niacin Allergy Rash/Hives Verified 11/20/18 10:12 Surgical - Exam Physical exam: General: Well-developed, well-nourished HEENT: Normocephalic, sclerae nonicteric Right breast: Mild induration at biopsy site upper inner quadrant, no adenopathy Left breast: No masses, no adenopathy Abdomen: Nontender, nondistended Extremities: No edema Neuro: Alert and oriented Assessment and Plan (1) Breast cancer, right Narrative/Plan: 68-year-old female with recent diagnosis of right breast invasive ductal cancer. Clinical stage IA currently. Options reviewed in detail with the patient. These options including both breast conservation with lumpectomy and radiation therapy and also mastectomy with or without reconstruction. At this time the patient is interested in breast conservation. We'll proceed with right breast lumpectomy with 2 wire localization tomorrow. Right breast sentinel lymph node injection and biopsy with possible axillary node dissection planned as well. Risks of bleeding, infection, scarring, pain, potential need for additional surgery, seroma, nerve injury reviewed. She understands and wishes to proceed. Status: Acute Code(s): C50.911 - MALIGNANT NEOPLASM OF UNSP SITE OF RIGHT FEMALE BREAST SNOMED Code(s): 956922614
--- NOTE | 2018-11-20 17:00 | P.NAPBC ---
NAPBC Queries - NAPBC Queries Was patient's case review presented at [facility] tumor board? If no, comment.: Yes Was patient's pathology reviewed at [facility]? If no, comment.: Yes Was breast conservation surgery offered? If no, comment.: Yes Was sentinel node biopsy offered? If no, comment.: Yes Was diagnosis confirmed by percutaneous core biopsy? If no, comment.: Yes If mastectomy patient, was a preop referral to a reconstructive surgeon offered?: Yes Clinical Stage: IA
[~2018-11-21 10:14] MED LIST: DEXAMETHASONE SOD PHOSPHATE 10 MG/ML 1 ML VIAL IV ONE; LACTATED RINGERS 1,000 ML IV SCH; LIDOCAINE 1% 20 ML VIAL (10MG/ML) FOR IV START INTRADERMA PRN; MIDAZOLAM 2 MG/2 ML VIAL IV PRN; ONDANSETRON 4 MG/2 ML VIAL IVP ONE; Pre Op ABX Message 1 EACH MISC MISCELLANE ONE; SCOPOLAMINE 1.5MG/72HR PATCH TRANSDERM ONE
[2018-11-21] MEDS ORDERED: LIDOCAINE 1% INJ 10MG/ML (20 ML MDV) SQ ONE ×2 (11:46→12:24)
[2018-11-21] MEDS ORDERED: SODIUM BICARB 4% 5 ML VIAL (0.48 MEQ/ML) MISCELLANE ONE ×2 (11:46→12:24)
[2018-11-21] MEDS ORDERED: HEPARIN SODIUM,PORCINE 5,000 UNIT/ML 1 ML VIAL SQ ONE (13:51)
[2018-11-21] MEDS ORDERED: ROCURONIUM BROMIDE 10 MG/ML 10 ML VIAL IV ONE (14:07)
[2018-11-21] MEDS ORDERED: SUCCINYLCHOLINE CHLORIDE 100 MG/5 ML SYR IV ONE (14:07)
[2018-11-21] MEDS ORDERED: GLYCOPYRROLATE 0.2 MG/ML 2 ML VIAL ONE (14:07)
[2018-11-21] MEDS ORDERED: ALBUTEROL INHALER 60 PUFF/8 GM INHALER INHALATION ONE (14:07)
[2018-11-21] MEDS ORDERED: fentaNYL (PF) 50 MCG/ML 2 ML AMP ONE (14:07)
[2018-11-21] MEDS ORDERED: MIDAZOLAM 2 MG/2 ML VIAL ONE (14:07)
[2018-11-21] MEDS ORDERED: PHENYLEPHRINE-0.9% NACL SYG 1 MG/10 ML SYRINGE ONE (14:07)
[2018-11-21] MEDS ORDERED: LIDOCAINE 1% INJ 10MG/ML (20 ML MDV) ONE (14:07)
[2018-11-21] MEDS ORDERED: PROPOFOL 10 MG/ML 20 ML VIAL IV ONE (14:07)
--- NOTE | 2018-11-21 14:21 | NM ---
EXAMINATION TYPE: NM sentinel node injection DATE OF EXAM: 11/21/2018 COMPARISON: 10/25/2018 HISTORY: Right breast cancer TECHNIQUE AND FINDINGS: The procedure of sentinel lymph node injection was explained to the patient. The benefits, alternatives, and risks were discussed. An informed consent was then obtained. Overlying skin is cleaned with sterile alcohol. Following this, 488 uCi [id number] Tilmanocept was inject ed in the upper outer aspect of the right nipple intradermally. The patient tolerated the procedure well without any immediate complication. The patient was kept in the radiology department for short stay after the procedure and then taken to surgery for surgical p rocedure what is presumed intraoperative gamma probe will be used for sentinel lymph node detection. IMPRESSION: Right breast radiotracer injection for sentinel node localization as above.
[2018-11-21] MEDS ORDERED: BUPIVACAINE (PF) 0.25% 30 ML VIAL SQ ONE (14:35)
[2018-11-21] MEDS ORDERED: METHYLENE BLUE 10 MG/ML (10 ML VIAL) MISCELLANE ONE (14:58)
[2018-11-21] MEDS ORDERED: LACTATED RINGERS 1,000 ML IV ONE (15:16)
[2018-11-21] MEDS ORDERED: traMADol 50 MG TAB PO PRN (15:41)
[2018-11-21] MEDS ORDERED: NALOXONE 0.4 MG/ML 1 ML VIAL IV PRN (15:41)
--- NOTE | 2018-11-21 15:45 | P.OP ---
Date of Procedure: 11/21/18 Procedure(s) Performed: REOPERATIVE DIAGNOSIS: Right breast cancer POSTOPERATIVE DIAGNOSIS: Same PROCEDURE: Right Breast wire localization lumpectomy with sentinel lymph node biopsy SURGEON: Yolette EBL: Minimal ANESTHESIA: General COMPLICATIONS: None OPERATIVE PROCEDURE: Patient was placed on the operating room table in the supine position. 3 mL of methylene blue was injected into the subareolar space. The breast was then massaged for 5 minutes. The breast was prepped and draped in usual sterile fashion. The right axilla was addressed at that time. The hot spot in the right axilla was identified. A small curvilinear incision was made using the scalpel. Dissection down through the subcutaneous tissues took place using electrocautery. Using the neoprobe I identified a total of 2 sentinel lymph nodes. The first lymph node was blue in color. These were all removed and sent to pathology for close examination. Frozen sections from the first lymph node was negative for metastatic disease. I decided not to do a frozen section of the second lymph node given its benign appearance and the fact that there was no blue discoloration here suggesting this was not the primary sentinel lymph node. No bleeding was seen. The subcutaneous tissues were closed using 3-0 Vicryl sutures. The skin was closed using 4-0 Monocryl sutures. The wire entrance sites were then addressed. The patient had 2 wires entering the breast in the upper inner quadrant. A curvilinear incision was made just inferior to these and dissection through the subcutaneous tissues took place using electrocautery. Both wires were brought out into the operative incision site. An adequate lumpectomy specimen then took place around the wire. Margins of 1.5-2 cm worth attempted to be achieved. Palpation of the specimen suggested that the inferior margin was somewhat close. I took an nahid tional margin inferiorly and this margin was painted the appropriate color on the new margin side. The initial specimen was also painted the appropriate 6 colors. Clips were used to identify the lumpectomy cavity. The clip was confirmed to be within the lumpectomy specimen by radiology. The subcutaneous tissues were closed using 3-0 Vicryl sutures. The skin was closed using a running 4-0 Monocryl stitch. Skin glue and sterile dressings were then applied. DISPOSITION: Stable to recovery room
[2018-11-21 15:47] VITALS: TEMP 96.8
[2018-11-21] MEDS: HYDROmorphone 0.5 MG/0.5 ML SYRINGE IVP PRN ×2 (15:54→16:01)
[2018-11-21 16:03] VITALS: RESP 16
[2018-11-21 17:00] VITALS: BP 131/82; PULSE 75
--- NOTE | 2018-11-22 09:01 | MM ---
Reason for exam: additional evaluation requested from abnormal screening. Last mammogram was performed 1 month ago. History: Patient is postmenopausal, has history of breast cancer at age 68, and is nulliparous. Family history of breast cancer in maternal aunt, breast cancer in mother, and breast cancer in sister at age 55. Malignant US breast needle core RT of the right breast, October 25, 2018. Malignant US breast needle core addl RT of the right breast, October 25, 2018. MG Diagnostic Mammo RT Wo CAD CC and MLO view(s) were taken of the right breast. Prior study comparison: October 25, 2018, right breast MG diagnostic mammo RT wo CAD. October 20, 2018, right breast MG 3d work up w/cad RT. ASSESSMENT: Post procedure mammogram for marker placement RECOMMENDATION: Ultrasound of the right breast in 6 months. PENDING PATHOLOGY RESULTS.
--- NOTE | 2018-11-27 14:28 | USB ---
CLINICAL HISTORY: R92.8, ABN MAMM. EXAMINATION TYPE: US breast localization RT, MG pre op needle loc RT, MG surgical specimen RT, MG diagnostic mammo RT wo CAD DATE OF EXAM: 11/21/2018 COMPARISON: Examinations dating back to 10/20/2018 TECHNIQUE: Needle localization with wire placement and surgical excision of 2 sites within the right breast both measuring 0.5 x 0.5 x 0.5 cm at the 1:00 position. FINDINGS: The procedure of needle localization with wire placement and than surgical excision was explained to the patient. Benefits, alternatives, and risks were discussed. An informed consent was then obtained. Preprocedural timeout was performed. Initial wire is placed on ultrasound with attempted to localize both masses with one wire however the first mass with a wing-shaped clip associated with a pathologic benign etiology however discordant radiographically was well localized under ultrasound but the second pathologically proven malignant mass marked with a coil biopsy marker was slightly medial and therefore a second wire was placed under mammographic guidance. SITE A-The shortest pathway for procedure was chosen. Shortest pathway was craniocaudal from above approach. The overlying skin was prepped and draped in usual sterile fashion. 10 cc of lidocaine buffered with bicarbonate was used as anesthetic into the skin and subcutaneous tissue up to the level of area of concern. A 5 cm needle was used. It was placed under direct sonographic guidance. The wire was placed and the needle was withdrawn. The wire was fixed to patient's skin. Images were marked for surgeon. SITE B: The shortest pathway for procedure was chosen. Shortest pathway was craniocaudal from above approach. The overlying skin was prepped and draped in usual sterile fashion. 10 cc of lidocaine buffered with bicarbonate was used as anesthetic into the skin and subcutaneous tissue up to the level of area of concern. A 7 cm needle was used. It was placed via a craniocaudal from above approach under mammographic guidance. Subsequent 90 degrees mammogram show the needle to be in satisfactory position relative to the targeted area. At this point, wire was placed and the needle was withdrawn. The wire was fixed to patient's skin. Images were marked for surgeon. The patient tolerated the procedure well without any immediate complication. The patient was kept in the radiology department for short stay after the procedure and then taken to surgery for surgical excision. Targeted biopsy markers and wires are identified in specimen mammogram. The patient was kept in hospital for short stay after the procedure and then discharged home in stable condition. IMPRESSION: Successful, uncomplicated needle localization with wire placement and surgical excision of the biopsy marker indicating the pathologically biopsy- proven breast cancer and biopsy marker indicating the radiologic discordant benign lesion in the right breast, full pathology results to follow. Pathology Results: Malignant A. RIGHT SENTINEL LYMPH NODE #1, BIOPSY: Lymph node negative for metastasis. CK7 and MAURISIO immunoperoxidase stains are confirmatory (controls appropriate). B. RIGHT SENTINEL LYMPH NODE #2, BIOPSY: Lymph node negative for metastasis. CK7 and MAURISIO immunoperoxidase stains are confirmatory (controls appropriate). C. 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 Focal atypical ductal hyperplasia (ADH) less than 1mm from the green/orange inked (inferior/lateral) margin. See Surgical Pathology Cancer Case Summary. D. RIGHT BREAST, NEW INFERIOR MARGIN, EXCISION: Benign breast with fibrocystic changes including sclerosing adenosis. Recommendation Surgical consult of the right breast. MARILEE
== END 2018-11-21 17:14 | disposition home or self-care (01) ==
LOC: OR 10:14
PROVIDERS: ATTEND Surgery
DX: D05.11 Intraductal carcinoma in situ of right breast (principal); Z80.3 Family history of malignant neoplasm of breast; Z78.0 Asymptomatic menopausal state; K21.9 Gastro-esophageal reflux disease without esophagitis; E78.5 Hyperlipidemia, unspecified; I10 Essential (primary) hypertension; M19.90 Unspecified osteoarthritis, unspecified site; Z87.01 Personal history of pneumonia (recurrent); I69.351 Hemiplegia and hemiparesis following cerebral infarction affecting right dominant side; R32 Unspecified urinary incontinence; M81.0 Age-related osteoporosis without current pathological fracture; Z83.3 Family history of diabetes mellitus; Z82.49 Family history of ischemic heart disease and other diseases of the circulatory system; Z79.82 Long term (current) use of aspirin; Z79.899 Other long term (current) drug therapy; Z88.5 Allergy status to narcotic agent; Z88.8 Allergy status to other drugs, medicaments and biological substances
CPT/HCPCS: 38500; 88342; 88331; 88307; 88341; 77065; 76098; 19281; 19285; 38792; A9520; J2250; J1644; J1100; J2405; J2001; Q9968; J3010; J2370; J0330; J2704; J1170

== ENCOUNTER → 2019-05-21 | Outpatient (CLI) | payer MEDICARE, OTHER ==
--- NOTE | 2019-05-21 13:30 | CT ---
EXAMINATION TYPE: CT chest w con DATE OF EXAM: 05/21/2019 COMPARISON: 05/21/2019 HISTORY: Pulmonary fibrosis, lung mass CT DLP: 251.5 mGycm, Automated exposure control for dose reduction was used. CONTRAST: Performed without contrast. Study is then Performed with 80 mL of Isovue 300. TECHNIQUE: Axial images were obtained at 5 mm thick sections. Reconstructed images are reviewed on [employer] computer in the coronal plane. FINDINGS: Portion of the thyroid visualized is normal. There is irregular density measuring 2.6 x 1.9 cm in the posterior right upper lung field. This is st able from comparison. No additional suspicious densities are evident. No enlarged mediastinal or hilar adenopathy is evident. Smaller pretracheal lymph node is present. The ascending aorta diameter at the level of the main pulmonary artery is 3.3 cm. The main pulmonary artery diameter at the bifurcation is 2.6 cm. Moderate-sized hiatal hernia is present. Limited CT sections are obtained through the upper abdomen. No renal stones are evident. The left kid nabor is atrophic. No suspicious enhancement is evident. Precontrast images demonstrate coronary artery calcification. S urgical clips in the right axillary region. IMPRESSIONS: 1. Stable irregular posterior lung mass on lung windows.
== END ==
LOC: RADCTMAIN 11:46
PROVIDERS: ATTEND Thoracic Surgery (Cardiothoracic Vascular Surgery)
DX: R91.8 Other nonspecific abnormal finding of lung field (principal)
CPT/HCPCS: 82565; 84520; 71260; 36415; Q9967

== ENCOUNTER → 2019-05-21 | Outpatient (CLI) | payer MEDICARE, OTHER ==
--- NOTE | 2019-05-21 13:30 | CT ---
EXAMINATION TYPE: CT chest w con DATE OF EXAM: 05/21/2019 COMPARISON: 05/21/2019 HISTORY: Pulmonary fibrosis, lung mass CT DLP: 251.5 mGycm, Automated exposure control for dose reduction was used. CONTRAST: Performed without contrast. Study is then Performed with 80 mL of Isovue 300. TECHNIQUE: Axial images were obtained at 5 mm thick sections. Reconstructed images are reviewed on [employer] computer in the coronal plane. FINDINGS: Portion of the thyroid visualized is normal. There is irregular density measuring 2.6 x 1.9 cm in the posterior right upper lung field. This is st able from comparison. No additional suspicious densities are evident. No enlarged mediastinal or hilar adenopathy is evident. Smaller pretracheal lymph node is present. The ascending aorta diameter at the level of the main pulmonary artery is 3.3 cm. The main pulmonary artery diameter at the bifurcation is 2.6 cm. Moderate-sized hiatal hernia is present. Limited CT sections are obtained through the upper abdomen. No renal stones are evident. The left kid nabor is atrophic. No suspicious enhancement is evident. Precontrast images demonstrate coronary artery calcification. S urgical clips in the right axillary region. IMPRESSIONS: 1. Stable irregular posterior lung mass on lung windows.
== END ==
LOC: RADCTMAIN 11:50
PROVIDERS: ATTEND Internal Medicine Pulmonary Disease
DX: R91.8 Other nonspecific abnormal finding of lung field (principal); E78.5 Hyperlipidemia, unspecified; I63.9 Cerebral infarction, unspecified; F17.201 Nicotine dependence, unspecified, in remission; Z86.11 Personal history of tuberculosis; Z98.890 Other specified postprocedural states
CPT/HCPCS: 71250

== ENCOUNTER → 2020-01-09 | Outpatient (CLI) | payer MEDICARE, OTHER ==
--- NOTE | 2020-01-10 09:35 | MM ---
Reason for exam: additional evaluation requested from prior study. Last mammogram was performed 1 year and 2 months ago. History: Patient is postmenopausal, has history of breast cancer at age 68, and is nulliparous. Family history of breast cancer in maternal aunt, breast cancer in mother, and breast cancer in sister at age 55. Malignant MG pre op needle loc RT of the right breast, November 21, 2018. Malignant US breast localization RT of the right breast, November 21, 2018. Lumpectomy of the right breast, November 21, 2018. Malignant US breast needle core RT of the right breast, October 25, 2018. Malignant US breast needle core addl RT of the right breast, October 25, 2018. Taking other hormone for 1 year 3 months. Physical Findings: Nurse did not find any significant physical abnormalities on exam. MG 3D Diag Mammo W/Cad SEBAS Bilateral CC and MLO view(s) were taken. XCCL view(s) were taken of the right breast. Prior study comparison: November 21, 2018, right breast MG diagnostic mammo RT wo CAD. October 25, 2018, right breast MG diagnostic mammo RT wo CAD. October 20, 2018, right breast MG 3d work up w/cad RT. October 05, 2017, bilateral MG 3d screening mammo w/cad. August 10, 2016, bilateral MG screening mammo w CAD. The breast tissue is heterogeneously dense. This may lower the sensitivity of mammography. Post surgical and post therapy changes right breast. A couple punctate calcifications are present at the surgical site and can be reassessed at 6 months. Anterior vascular calcifications are noted. No other change. These results were verbally communicated with the patient and result sheet given to the patient on 01/09/20. ASSESSMENT: Probably benign, BI-RAD 3 RECOMMENDATION: Follow-up diagnostic mammogram of the right breast in 6 months.
== END | disposition home or self-care (01) ==
LOC: RADMAMWWP 09:31
PROVIDERS: ATTEND Radiology Radiation Oncology
DX: C50.211 Malignant neoplasm of upper-inner quadrant of right female breast (principal); Z92.3 Personal history of irradiation; Z17.0 Estrogen receptor positive status [ER+]
CPT/HCPCS: 77066; G0279; 77062

== ENCOUNTER → 2020-02-29 | Outpatient (CLI) | payer MEDICARE, OTHER ==
--- NOTE | 2020-02-29 10:48 | US ---
EXAMINATION TYPE: US kidneys/renal and bladder DATE OF EXAM: 02/29/2020 COMPARISON: 10/03/2015 CLINICAL HISTORY: N18.3 Chronic kidney disease stage 3. EXAM MEASUREMENTS: Right Kidney: 12.1 x 6.2 x 4.5 cm Left Kidney: 6.8 x 2.5 x 2.4 cm Post Void Residual Volume: 0 mL Right Kidney: No hydronephrosis or nephrolithiasis or masses seen . Renal cortex is preserved. Left Kidney: small in size, decreased renal cortex Bladder: wnl Bilateral Jets seen: Right side only Normal Post Void Residual: Yes IMPRESSION: Atrophic left kidney with no hydronephrosis or nephrolithiasis. Correlate for chronic medical renal d isease.
== END | disposition home or self-care (01) ==
LOC: RADUSWWP 09:45
PROVIDERS: ATTEND Internal Medicine Nephrology
DX: N26.1 Atrophy of kidney (terminal) (principal); N18.3 Chronic kidney disease, stage 3 (moderate)
CPT/HCPCS: 76770

== ENCOUNTER → 2020-05-07 | Outpatient (CLI) | payer MEDICARE, OTHER | END | disposition home or self-care (01) | LOC: LABWHC1 08:27 | PROVIDERS: ATTEND Internal Medicine | DX: E87.6 Hypokalemia (principal) | CPT/HCPCS: 36415; 84132 ==

== ENCOUNTER → 2020-05-15 | Outpatient (CLI) | payer MEDICARE, OTHER ==
--- NOTE | 2020-05-15 15:20 | CT ---
EXAMINATION TYPE: CT chest w con DATE OF EXAM: 05/15/2020 COMPARISON: 05/21/2019 HISTORY: Chest mass, history of lung cancer. CT DLP: 422 mGycm Automated exposure control for dose reduction was used. CONTRAST: CT scan of the chest is performed with IV Contrast, patient injected with 100 mL of Isovue M300. FINDINGS: LUNGS: Diffuse emphysematous changes are noted. 2.6 x 1.9 cm posterior right upper lobe pleural-based area of irregular consolidation or mass is stable. No pneumothorax. No pleural effusion. MEDIASTINUM: There are no greater than 1 cm hilar or mediastinal lymph nodes. No pericardial effusi on is seen. OTHER: Postsurgical change involving the right breast. Hiatal hernia noted. There is extensive athe rosclerotic change of the upper abdominal aorta with critical stenosis to near occlusion suspected. T his is similar in appearance to the prior exam. Atrophy of the left kidney noted. Chronic appearing c ompression deformity superior endplate thoracolumbar junction. Multilevel degenerative changes. IMPRESSION: 1. COPD with stable appearing irregular mass or consolidation posterior segment right upper lobe stefany uring 2.6 x 1.9 cm. 2. The upper abdominal aorta demonstrates extensive atherosclerotic change with near complete occlusi on correlate clinically. Findings similar to prior exam. 3. Large hiatal hernia A Yellow level critical message alert has been initiated for Michele Diaz DO via the [employer] Critical Results System on 05/15/2020 3:16 PM. This message alert has been sent to Michele razo DO via the preferences provided by the clinician for the receipt of Radiology Critical Findings . Message ID [id number].
== END | disposition home or self-care (01) ==
LOC: RADCTMAIN 12:32
PROVIDERS: ATTEND Thoracic Surgery (Cardiothoracic Vascular Surgery)
DX: J44.9 Chronic obstructive pulmonary disease, unspecified (principal); K44.9 Diaphragmatic hernia without obstruction or gangrene; R22.2 Localized swelling, mass and lump, trunk
CPT/HCPCS: 82565; 84520; 71260; 36415; Q9967

== ENCOUNTER → 2020-06-11 | Outpatient (CLI) | payer MEDICARE, OTHER ==
[2020-06-11 08:44] LABS: HCT 42.5 % (34.0-46.0); HGB 14.4 gm/dL (11.4-16.0); MCH 31.3 pg (25.0-35.0); MCHC 33.9 g/dL (31.0-37.0); MCV 92.4 fL (80.0-100.0); Mean Platelet Volume 10.3; Platelet Count 181 k/uL (150-450); RDW 13.6 % (11.5-15.5); WBC 7.6 k/uL (3.8-10.6)
[2020-06-11 09:22] LABS: Appearance,Urine Clear (Clear); Bilirubin,Urine Negative (Negative); Blood,Urine Negative (Negative); Color,Urine Light Yellow; Glucose,Urine (UA) Negative (Negative); Ketones,Urine Negative (Negative); Leukocyte Esterase,Urine Trace (Negative); Mucus,Urine Rare /hpf; Nitrite,Urine Negative (Negative); PH, Urine 5.5 (5.0-8.0); Protein,Urine Negative (Negative); RBC,Urine <1 /hpf (0-5); Specific Gravity,Urine 1.015 (1.001-1.035); Squamous Epithelial Cell,Urine 1 /hpf (0-4); Urobilinogen,Urine <2.0 mg/dL (<2.0); WBC,Urine 2 /hpf (0-5)
[2020-06-11 15:08] LABS: % Iron Saturation 27.69 (12.00-45.00); African American GFR (CKD) 67.5 (60.0-200.0); Albumin 4.1 g/dL (3.80-4.90); Albumin/Globulin Ratio 1.52 (1.60-3.17); Anion Gap 5.4 mmol/L (4.00-12.00); Calcium 9.7 mg/dL (8.7-10.3); Carbon Dioxide 26.6 mmol/L (21.6-31.8); Globulin 2.7 g/dL (1.6-3.3); Magnesium 1.8 mg/dL (1.5-2.4); Non-African American GFR(CKD) 58.2 (60.0-200.0); Phosphorus 3.8 mg/dL (2.4-5.1); Potassium 4.1 mmol/L (3.5-5.5); Total Bilirubin 0.4 mg/dL (0.2-1.2); Total Protein 6.8 g/dL (6.2-8.2); Uric Acid 5.9 mg/dL (2.9-7.7)
[2020-06-11 15:16] LABS: Ferritin 247.9 ng/mL (10.0-291.0)
== END | disposition home or self-care (01) ==
LOC: LABWHC1 08:11
PROVIDERS: ATTEND Nurse Practitioner Family
DX: E55.9 Vitamin D deficiency, unspecified (principal); E61.1 Iron deficiency; N25.81 Secondary hyperparathyroidism of renal origin; N18.30 Chronic kidney disease, stage 3 unspecified
CPT/HCPCS: 36415; 80053; 81001; 82306; 82728; 83540; 83550; 83735; 83970; 84100; 84550; 85027

== ENCOUNTER → 2020-07-11 | Outpatient (CLI) | payer MEDICARE, OTHER ==
--- NOTE | 2020-07-22 13:22 | MM ---
Reason for exam: follow-up at short interval from prior study. Last mammogram was performed 6 months ago. History: Patient is postmenopausal, has history of breast cancer at age 68, and is nulliparous. Family history of breast cancer in maternal aunt, breast cancer in mother, and breast cancer in sister at age 55. Malignant MG pre op needle loc RT of the right breast, November 21, 2018. Malignant US breast localization RT of the right breast, November 21, 2018. Lumpectomy of the right breast, November 21, 2018. Malignant US breast needle core RT of the right breast, October 25, 2018. Malignant US breast needle core addl RT of the right breast, October 25, 2018. Taking other hormone for 1 year 3 months. Physical Findings: Nurse did not find any significant physical abnormalities on exam. MG 3D Diag Mammo W/Cad RT CC and MLO view(s) were taken of the right breast. Prior study comparison: January 09, 2020, bilateral MG 3d diag mammo w/cad SEBAS. November 21, 2018, right breast MG diagnostic mammo RT wo CAD. The breast tissue is heterogeneously dense. This may lower the sensitivity of mammography. Post biopsy changes. No significant new findings when compared with previous films. These results were verbally communicated with the patient and result sheet given to the patient on 07/11/20. ASSESSMENT: Benign, BI-RAD 2 RECOMMENDATION: Routine screening mammogram of both breasts in 6 months. Back on schedule for December 2020.
== END | disposition home or self-care (01) ==
LOC: RADMAMWWP 12:36
PROVIDERS: ATTEND Radiology Radiation Oncology
DX: C50.211 Malignant neoplasm of upper-inner quadrant of right female breast (principal); Z92.3 Personal history of irradiation; Z17.0 Estrogen receptor positive status [ER+]
CPT/HCPCS: 77065; G0279; 77061

== ENCOUNTER 2020-12-01 09:56 | Day surgery (SDC) | payer MEDICARE, OTHER ==
[2020-11-27 10:52] VITALS: BMI 26.4
[2020-12-01 10:37] VITALS: TEMP 97.9
[2020-12-01] MEDS: LIDOCAINE 1% (10MG/ML) FOR IV START INTRADERMA ONE ×2 (10:39→10:40)
[2020-12-01] MEDS: LACTATED RINGERS 1,000 ML IV SCH (10:40)
[2020-12-01] MEDS ORDERED: PROPOFOL 10 MG/ML 20 ML VIAL IV ONE (11:52)
[2020-12-01] MEDS ORDERED: LIDOCAINE 1% INJ 10MG/ML (20 ML MDV) ONE (11:52)
[2020-12-01 12:22] VITALS: RESP 16
--- NOTE | 2020-12-01 12:23 | P.PCN ---
Date of Procedure: 12/01/20 Description of Procedure: BRIEF HISTORY: Patient is a 70-year-old female presenting for outpatient colonoscopy for family history of colon cancer. Patient also has a personal history of colon polyps and reports her last colonoscopy was 5 years ago in 2016. No change in bowel habits. No abdominal pain. PROCEDURE PERFORMED: Colonoscopy with polypectomy. PREOPERATIVE DIAGNOSIS: Family history of colon cancer, personal history of colon polyps, last colonoscopy 2016. ESTIMATED BLOOD LOSS: Minimal. IV sedation per Anesthesia. PROCEDURE: After informed consent was obtained, the patient, was brought into the endoscopy unit. IV sedation was administered by Anesthesia under continuous monitoring. Digital rectal examination was normal. Initially the Olympus CF-190 flexible video colonoscope was then inserted in the rectum, gradually advanced into the cecum without any difficulty. Careful examination was performed as the scope was gradually being withdrawn. Ileocecal valve and the appendiceal orifice were visualized and appeared normal. Prep was good with some stool throughout the colon which was lavaged and suctioned. Mucosa of the cecum, ascending colon, transverse colon, descending colon, sigmoid colon, and rectum appeared normal. A flat 5 mm ascending colon polyp was removed with cold snare polypectomy. 2 diminutive 2 mm descending colon polyps were removed with cold forcep polypectomy. Retroflexion was performed in the rectum and no lesions were seen. The patient tolerated the procedure well. IMPRESSION: Flat ascending colon polyp removed with cold snare polypectomy. 2 diminutive descending colon polyps removed with cold forcep polypectomy. RECOMMENDATIONS: Findings of this examination were discussed with the patient in her family. Okay to resume diet. Okay to resume medications. Await pathology from polypectomies. Recommend repeat colonoscopy in 5 years for family history of colon cancer and personal history of colon polyps.
[2020-12-01 12:41] VITALS: BP 147/85; PULSE 72
== END 2020-12-01 12:48 | disposition home or self-care (01) ==
LOC: ORWHC2ENDO 09:56
PROVIDERS: ATTEND Internal Medicine
DX: Z12.11 Encounter for screening for malignant neoplasm of colon (principal); M19.90 Unspecified osteoarthritis, unspecified site; Z86.010 Personal history of colon polyps; Z80.0 Family history of malignant neoplasm of digestive organs; Z79.899 Other long term (current) drug therapy; D12.2 Benign neoplasm of ascending colon; D12.4 Benign neoplasm of descending colon; Z88.5 Allergy status to narcotic agent; Z88.8 Allergy status to other drugs, medicaments and biological substances; Z86.73 Personal history of transient ischemic attack (TIA), and cerebral infarction without residual deficits
CPT/HCPCS: 88305; 45380; 45385; J2001; J2704

== ENCOUNTER → 2021-01-19 | Outpatient (CLI) | payer MEDICARE, OTHER ==
--- NOTE | 2021-01-20 09:07 | MM ---
Reason for exam: additional evaluation requested from prior study. Last mammogram was performed 6 months ago. History: Patient is postmenopausal, has history of breast cancer at age 68, and is nulliparous. Family history of breast cancer in maternal aunt, breast cancer in mother, and breast cancer in sister at age 55. Malignant MG pre op needle loc RT of the right breast, November 21, 2018. Malignant US breast localization RT of the right breast, November 21, 2018. Lumpectomy of the right breast, November 21, 2018. Malignant US breast needle core RT of the right breast, October 25, 2018. Malignant US breast needle core addl RT of the right breast, October 25, 2018. Taking other hormone for 1 year 3 months. Physical Findings: Nurse Summary: 0.5cm adenopathy in the right breasst (nurse db). MG 3D Diag Mammo W/Cad SEBAS Bilateral CC and MLO view(s) were taken. XCCL view(s) were taken of the right breast. Prior study comparison: July 11, 2020, right breast MG 3d diag mammo w/cad RT. January 09, 2020, bilateral MG 3d diag mammo w/cad SEBAS. The breast tissue is heterogeneously dense. This may lower the sensitivity of mammography. Right lumpectomy and radiation changes with skin thickening. 1 cm nodule 9-10 o'clock 5.5cm from nipple at site of palpable lump. Palpable lump right axilla by nurse. These results were verbally communicated with the patient and result sheet given to the patient on 01/19/21. ASSESSMENT: Incomplete: need additional imaging evaluation, BI-RAD 0 RECOMMENDATION: Ultrasound of the right breast. (palpable right axilla)
--- NOTE | 2021-01-20 09:11 | USB ---
Reason for exam: additional evaluation requested from abnormal screening. History: Patient is postmenopausal, has history of breast cancer at age 68, and is nulliparous. Family history of breast cancer in maternal aunt, breast cancer in mother, and breast cancer in sister at age 55. Malignant MG pre op needle loc RT of the right breast, November 21, 2018. Malignant US breast localization RT of the right breast, November 21, 2018. Lumpectomy of the right breast, November 21, 2018. Malignant US breast needle core RT of the right breast, October 25, 2018. Malignant US breast needle core addl RT of the right breast, October 25, 2018. Taking other hormone for 1 year 3 months. US Breast Axilla RT Right limited breast ultrasound including focal area of concern, retroareolar and axilla demonstrates a 0.5 x 0.5 x 0.4cm hypoechoic, suspicious lesion at the axilla/10 o'clock, appear to correspond to suspicious nodule/site of palpable lump. These results were verbally communicated with the patient and result sheet given to the patient on 01/19/21. ASSESSMENT: Suspicious, BI-RAD 4 RECOMMENDATION: Ultrasound core biopsy of the right breast. Called Dr. Lemon's office with mammographic findings and has scheduled an appointment for the patient for 03/11/21 at 4:[address] De La Vega. Biopsy scheduled for 02/04/21 at 10:30. PRELIMINARY REPORT CALLED AND FAXED TO DR. DE LA VEGA ON 01/20/21.
== END | disposition home or self-care (01) ==
LOC: RADMAMWWP 09:44
PROVIDERS: ATTEND Radiology Radiation Oncology
DX: N64.89 Other specified disorders of breast (principal); N63.11 Unspecified lump in the right breast, upper outer quadrant; Z78.0 Asymptomatic menopausal state; Z85.3 Personal history of malignant neoplasm of breast; Z80.3 Family history of malignant neoplasm of breast
CPT/HCPCS: 77066; 76642; G0279; 77062

== ENCOUNTER → 2021-01-19 | Outpatient (CLI) | payer MEDICARE, OTHER ==
--- NOTE | 2021-01-21 14:46 | BD ---
EXAMINATION TYPE: Axial Bone Density DATE OF EXAM: 01/19/2021 COMPARISON: 10.17.2018 CLINICAL HISTORY: 70 YR OLD FEMALE.....ICD-10 CODE: M81.0 OSTEOPOROSIS Height: 60 Weight: 128 FRAX RISK QUESTIONS: Glucocorticoids (More than 3mos): YES (Ex: prednisone, prednisolone, methylprednisolone, dexamethasone, and hydrocortisone). Secondary Osteoporosis: YES 3. Menopause before 45: YES RISK FACTORS HISTORY OF: Diet low in dairy products/other sources of calcium: YES Postmenopausal woman: YES, AT ABOUT 29 YRS OLD, TOTAL HYST Take estrogen and/or progesterone medications: MAYBE IN THE PAST FOR SHORT WHILE, PT DOESN'T REMEMBER Hyperparathyroidism: NO Adrenal Insufficiency: NO MEDICATIONS: Prednisone or other steroids: YES, FOR ASTHMA AND COPD, INC BREATHING TREATMENTS ALSO, FOR MANY YRS Osteoporosis Medications: YES, FOSAMAX FOR ABOUT 20 YRS....ON AND OFF Additional Medications: BP MEDS, HX OF RADIATION FOR BREAST CANCER, REFLUX MEDS, LIPITOR, VIT D AND C ALCIUM Additional History: HX OF RT BREAST CANCER, HYPERTENSION, REFLUX, CHOLESTEROL, LETROZOLE EXAM MEASUREMENTS: Bone mineral densitometry was performed using the [employer] System. Bone mineral density as measured about the Lumbar spine is: ----- L1-L4(G/cm2): 0.903 T Score Values are as follows: ----- L1: -0.9 ----- L2: -3.0 ----- L3: -2.6 ----- L4: -2.3 ----- L1-L4: -2.3 Bone mineral density has: Decreased -6.3% since study of: 10.17.2018 Bone mineral density about the R hip (g/cm2): 0.778 Bone mineral density about the L hip (g/cm2): 0.769 T Score values are as follows: -----R Neck: -1.8 -----L Neck: -1.8 -----R Total: -1.8 -----L Total: -1.9 Bone mineral density has: Decreased -8.0% since study of: 10.17.2018 FRAX%s: THERE IS A 18.0% CHANCE FOR A MAJOR OSTEOPOROTIC FX AND A 5.2% FOR HIP.....PROBABILITY FOR FX IN 10 YRS TIME IMPRESSION: Osteoporosis (T Score less than -2.5). There is increased fracture risk and therapy is usually indicated based on age. Re-Screen 1-2 years. NOTE: T-SCORE=SD OF THE YOUNG ADULT MEAN.
== END | disposition home or self-care (01) ==
LOC: RADBDWWP 09:47
PROVIDERS: ATTEND Family Medicine
DX: Z13.820 Encounter for screening for osteoporosis (principal); M81.0 Age-related osteoporosis without current pathological fracture; M85.89 Other specified disorders of bone density and structure, multiple sites; Z78.0 Asymptomatic menopausal state
CPT/HCPCS: 77080

== ENCOUNTER → 2021-02-04 | Day surgery (SDC) | payer MEDICARE, OTHER ==
[2021-02-04 09:27] VITALS: BP 116/72; PULSE 67; RESP 16; TEMP 98
--- NOTE | 2021-02-04 11:26 | USB ---
EXAMINATION TYPE: US biopsy breast VAD RT, MG diagnostic mammo RT wo CAD DATE OF EXAM: 02/04/2021 CLINICAL HISTORY: R92.8 ABN MAMMO. TECHNIQUE: Ultrasound guided core biopsy of right breast. COMPARISON: 01/19/2021 FINDINGS: The procedure of ultrasound guided core biopsy was explained to the patient. Benefits, alternatives, and risks were discussed. An informed consent was then obtained. The patient was placed in supine positioning for imaging and for the procedure. The overlying skin was prepped and draped in usual sterile fashion. Lidocaine buffered with bicarbonate was used as anesthetic into the skin and subcutaneous tissue up to area of concern in the right breast. A rigoberto was made with surgical scalpel. Under ultrasound guidance, a 12-gauge vacuum assisted biopsy gun device was used to obtain 4 core samples. Following this, a biopsy clip was left in lesion. The patient tolerated the procedure well without any immediate complication. The patient was kept in the radiology department for short stay after the procedure and then discharged home in stable condition. Postprocedure mammogram was obtained with clip identified and extensive postoperative changes. IMPRESSION: Successful, uncomplicated ultrasound guided core biopsy of area of concern in the right axillary tail, full pathology results to follow. Pathology Results: Benign RIGHT BREAST, TEN O'CLOCK POSITION, ULTRASOUND GUIDED CORE BIOPSY: Hypocellular and bland stromal fibrosis, favor scar (see note). Current specimen negative for diagnostic malignancy. Recommendation Follow up mammogram and ultrasound of the right breast in 6 months. MTDD
== END ==
LOC: RADUSWWP 09:11
PROVIDERS: ATTEND Surgery
DX: N60.31 Fibrosclerosis of right breast (principal); Z88.5 Allergy status to narcotic agent; Z88.8 Allergy status to other drugs, medicaments and biological substances
CPT/HCPCS: 88305; 77065; 19083; A4648; J2001

== ENCOUNTER → 2022-02-01 | Outpatient (CLI) | payer MEDICARE, OTHER ==
--- NOTE | 2022-02-01 15:03 | MM ---
Reason for Exam: Follow-up at short interval from prior study. Last mammogram was performed 1 year(s) and 1 month(s) ago. Patient History: Menarche at age 16. Patient has no children. Left ovary removed at age 24. Right ovary removed at age 24. Hysterectomy at age 24. Postmenopausal. Breast cancer, right, age 68. 11/21/2018, Lumpectomy on the Right side. 02/04/2021, Benign Core Biopsy on the right side. 11/21/2018, Malignant Core Biopsy on the right side. 11/21/2018, Malignant Core Biopsy on the right side. 10/25/2018, Malignant Core Biopsy on the right side. 10/25/2018, Malignant Core Biopsy on the right side. 2018, Radiation Therapy on the right side. Maternal aunt had breast cancer, age 60. Sister had breast cancer, age 65. Mother had breast cancer, age 68. Tissue Density: The breast tissue is heterogeneously dense. This may lower the sensitivity of mammography. Findings: Analyzed By CAD. Persistent distortion with treatment changes in the right breast and numerous surgical clips. Mammotome biopsy clip in the right breast is redemonstrated. No new mass or distortion either breast. Overall Assessment: Benign, BI-RAD 2 Management: Diagnostic Mammogram of both breasts in 1 year. A clinical breast exam by your physician is recommended on an annual basis and results should be correlated with mammographic findings. This exam should not preclude additional follow-up of suspicious palpable abnormalities. Results were given to the patient verbally at the time of exam. Electronically signed and approved by: Lv Singre M.D.
== END | disposition home or self-care (01) ==
LOC: RADMAMWWP 14:03
PROVIDERS: ATTEND Surgery
DX: R92.8 Other abnormal and inconclusive findings on diagnostic imaging of breast (principal); Z78.0 Asymptomatic menopausal state; Z80.3 Family history of malignant neoplasm of breast
CPT/HCPCS: 77066; G0279; 77062

== ENCOUNTER → 2023-01-20 | Outpatient (CLI) | payer MEDICARE, OTHER ==
--- NOTE | 2023-01-20 09:55 | BD ---
EXAMINATION TYPE: Axial Bone Density DATE OF EXAM: 01/20/2023 CLINICAL HISTORY: 72 year old Female. ICD-10 CODE: M81.0 AGE RELATED OSTEO Height: 60.5 Weight: 119.7 FRAX RISK QUESTIONS: Alcohol (3 or more units per day): no Family History (Parent hip fracture): no Glucocorticoids (More than 3mos): no (Ex: prednisone, prednisolone, methylprednisolone, dexamethasone, and hydrocortisone). History of Fracture in Adulthood: no Secondary Osteoporosis: 1. Type 1 Diabetes: no 2. Hyperthyroidism: no 3. Menopause before 45: yes 4. Malnutrition: no 5. Chronic liver disease: no Rheumatoid Arthritis: no Current Tobacco Use: no RISK FACTORS HISTORY OF: Surgery to Spine/Hip(right/left)/Wrist (right/left): no Family History of Osteoporosis: no Active: yes Diet low in dairy products/other sources of calcium: no Postmenopausal woman: yes Lost more than 2 inches in height since high school: no MEDICATIONS: Additional History: EXAM MEASUREMENTS: Bone mineral densitometry was performed using the [employer] System. Bone mineral density as measured about the Lumbar spine is: ----- L1-L4(G/cm2): 0.966 T Score Values are as follows: ----- L1: 0.5 ----- L2: -2.2 ----- L3: -2.8 ----- L4: -2.4 ----- L1-L4: -1.8 Z Score Values are as follows: ----- L1: 2.5 ----- L2: -0.1 ----- L3: -0.7 ----- L4: -0.4 ----- L1-L4: 0.2 Bone mineral density has: increased 7.0 % since study of: 01.19.2021 Bone mineral density about the R hip (g/cm2): 0.733 Bone mineral density about the L hip (g/cm2): 0.747 T Score values are as follows: -----R Neck: -1.9 -----L Neck: -1.9 -----R Total: -1.9 -----L Total: -2.1 Z Score values are as follows: -----R Neck: -0.1 -----L Neck: -0.3 -----R Total: 0.0 -----L Total: 0.1 Bone mineral density has: decreased -1.7 % since study of: 6..2020 FRAX%s: The graph provided illustrates a 11.2% chance for a major osteoporotic fx and a 2.2% chance f or the hips probability for fx in 10 years time. IMPRESSION: Osteopenia (T Score between -2.5 and -1). There is slightly increased risk of fracture and the patient may be considered for treatment. Re-Screen 2-5 years. NOTE: T-SCORE=SD OF THE YOUNG ADULT MEAN.
== END | disposition home or self-care (01) ==
LOC: RADBDWWP 08:50
PROVIDERS: ATTEND Internal Medicine Rheumatology
DX: M81.0 Age-related osteoporosis without current pathological fracture (principal); M85.89 Other specified disorders of bone density and structure, multiple sites
CPT/HCPCS: 77080

== ENCOUNTER → 2023-02-02 | Outpatient (CLI) | payer MEDICARE ==
--- NOTE | 2023-02-02 11:30 | MM ---
Reason for Exam: Additional evaluation requested from prior study. Last screening mammogram was performed 12 month(s) ago. Patient History: Menarche at age 16. Patient has no children. Left ovary removed at age 24. Right ovary removed at age 24. Hysterectomy at age 24. Postmenopausal. Breast cancer, right, age 68. Previous chest radiation therapy at age 68. 11/21/2018, Lumpectomy on the Right side. 02/04/2021, Benign Core Biopsy on the right side. 11/21/2018, Malignant Core Biopsy on the right side. 11/21/2018, Malignant Core Biopsy on the right side. 10/25/2018, Malignant Core Biopsy on the right side. 10/25/2018, Malignant Core Biopsy on the right side. 2018, Radiation Therapy on the right side. Maternal aunt had breast cancer, age 60. Sister had breast cancer, age 65. Mother had breast cancer, age 68. Prior Study Comparison: 01/19/2021 Bilateral Diagnostic Mammogram, [facility]. 02/04/2021 Right Diagnostic Mammogram, [facility]. 08/03/2021 Right Diagnostic Mammogram, [facility]. 02/01/2022 Bilateral MG 3D diag mammo w/cad SEBAS, [facility]. Tissue Density: The breast tissue is heterogeneously dense. This may lower the sensitivity of mammography. Findings: Analyzed By CAD. Right breast surgical changes are stable. No new suspicious masses, calcifications or distortions. Overall Assessment: Benign, BI-RAD 2 Management: Diagnostic Mammogram of both breasts in 1 year. Results were given to the patient verbally at the time of exam. Patient should continue monthly self-breast exams. A clinical breast exam by your physician is recommended on an annual basis. This exam should not preclude additional follow-up of suspicious palpable abnormalities. Note on Meaghan scores and lifetime risk: 1. A Meaghan score greater than 3% is considered moderate risk. If this is the case, consider specialist referral to assess eligibility for a risk reducing agent. 2. If overall lifetime risk for the development of breast cancer is 20% or higher, the patient may qualify for future screening with alternating mammogram and breast MRI. Electronically signed and approved by: Joaquín Ferrer DO
== END | disposition home or self-care (01) ==
LOC: RADMAMWWP 10:45
PROVIDERS: ATTEND Radiology Radiation Oncology
DX: C50.211 Malignant neoplasm of upper-inner quadrant of right female breast (principal); Z78.0 Asymptomatic menopausal state; Z85.3 Personal history of malignant neoplasm of breast
CPT/HCPCS: 77066; G0279; 77062

== ENCOUNTER 2023-06-14 09:46 | Day surgery (SDC) | payer MEDICARE ==
[~2023-06-14 09:46] MED LIST changes: -DEXAMETHASONE SOD PHOSPHATE 10 MG/ML 1 ML VIAL IV ONE; -LIDOCAINE 1% 20 ML VIAL (10MG/ML) FOR IV START INTRADERMA PRN; -MIDAZOLAM 2 MG/2 ML VIAL IV PRN; -ONDANSETRON 4 MG/2 ML VIAL IVP ONE; -Pre Op ABX Message 1 EACH MISC MISCELLANE ONE; -SCOPOLAMINE 1.5MG/72HR PATCH TRANSDERM ONE
[2023-06-14] MEDS ORDERED: LIDOCAINE 1% (10MG/ML) FOR IV START INTRADERMA ONE (11:07)
[2023-06-14 11:24] VITALS: RESP 16; TEMP 97.2
[2023-06-14] MEDS ORDERED: LIDOCAINE 1% INJ 10MG/ML (20 ML MDV) ONE (12:05)
[2023-06-14] MEDS ORDERED: PROPOFOL 10 MG/ML 20 ML VIAL IV ONE (12:05)
--- NOTE | 2023-06-14 12:16 | P.PCN ---
Date of Procedure: 06/14/23 Procedure(s) Performed: BRIEF HISTORY: Patient is a 72-year-old, pleasant, white female scheduled for an upper endoscopy as a part of evaluation of epigastric pain and GERD with intermittent episodes of nausea vomiting for the last few months duration. PROCEDURE PERFORMED: Esophagogastroduodenoscopy with biopsy. PREOPERATIVE DIAGNOSIS: Epigastric pain/intermittent nausea vomiting. IV sedation per anesthesia. PROCEDURE: After informed consent was obtained, the patient was brought into the endoscopy unit. IV sedation was administered by Anesthesia under continuous monitoring. Initially the Olympus GIF-140 video endoscope was inserted into the mouth. Esophagus intubated without any difficulty. It was gradually advanced into the stomach and duodenum and carefully examined. The bulb and the second part of the duodenum appeared normal. The scope at this time was withdrawn to the stomach, adequately insufflated with air, and upon careful examination, mucosa of the antrum scattered erosions and biopsies were done from this area. Mucosa of the, body, cardia and the fundus appeared normal. The scope was then withdrawn into the esophagus. Moderate size hiatal hernia. The GE junction was located at 33 cm from the incisors. Linear erosions noted in the distal esophagus consistent with LA grade B reflux esophagitis. Rest of esophagus appeared normal and the patient tolerated the procedure well. IMPRESSION: 1. Linear erosions in the distal esophagus consistent with LA grade B reflux esophagitis. 2. Moderate size hiatal hernia 3. Antral erosive gastritis. RECOMMENDATIONS: The findings of this examination were discussed with the patient as well as her family. Follow with the biopsy results. She was advised to continue with omeprazole 20 mg daily and follow antrum reflux measures..
[2023-06-14 13:18] VITALS: BP 166/78; PULSE 65
== END 2023-06-14 13:23 | disposition home or self-care (01) ==
LOC: ORWHC2ENDO 09:46
PROVIDERS: ATTEND Internal Medicine Gastroenterology
DX: K29.50 Unspecified chronic gastritis without bleeding (principal); K44.9 Diaphragmatic hernia without obstruction or gangrene; I10 Essential (primary) hypertension; E78.5 Hyperlipidemia, unspecified; M19.90 Unspecified osteoarthritis, unspecified site; K21.9 Gastro-esophageal reflux disease without esophagitis; Z79.82 Long term (current) use of aspirin; Z86.73 Personal history of transient ischemic attack (TIA), and cerebral infarction without residual deficits; Z79.899 Other long term (current) drug therapy; Z88.1 Allergy status to other antibiotic agents; Z88.5 Allergy status to narcotic agent
CPT/HCPCS: 43239; J2001; J2704; 88305

== ENCOUNTER → 2023-07-01 | Outpatient (CLI) | payer MEDICARE ==
[2023-07-01 10:06] LABS: African American GFR (CKD) 40 (>60 ml/min/1.73 sqM); Blood Urea Nitrogen 30 mg/dL (7-17); Non-African American GFR(CKD) 35 (>60 ml/min/1.73 sqM)
--- NOTE | 2023-07-01 16:47 | CT ---
EXAMINATION TYPE: CT chest wo con CT DLP: 185.1 mGycm, Automated exposure control for dose reduction was used. DATE OF EXAM: 07/01/2023 10:42 AM COMPARISON: Chest x-ray 06/24/2023 . CLINICAL INDICATION:Female, 72 years old with history of R04.2 Hemoptysis; PHH, coughing up blood TECHNIQUE: Multiple axial images were obtained through the chest. Sagittal and coronal reformats were created for review. Contrast used: mL of (None if empty) Oral contrast used: (None if empty) FINDINGS: Exam is limited without IV contrast. LOWER NECK: No significant findings. HEART: Upper normal in size. Moderate coronary arterial calcifications are seen. Small to moderate si ze pericardial effusion. VASCULATURE: Mostly moderate diffuse calcific plaque throughout the aorta. Ascending aorta is mildly dilated at 3.6 cm. In the upper abdomen, there is heavy, dense calcification of the aorta near the l evel of the diaphragmatic hiatus which appears to involve the entire aorta and the aorta may be occlu ded. There is likely mild to moderate narrowing of the branch vessels along the arch and at the origi ns of the celiac and superior mesenteric arteries. Origins of the renal arteries are difficult to vis ualize but likely originate at or below the level of the heavy calcification. More distally, the aort a appears moderately calcified peripherally and somewhat tortuous. MEDIASTINUM: No gross evidence of adenopathy. Small hiatal hernia with a thickened appearance of the distal esophageal wall. LUNGS/ PLEURA: Moderate emphysematous changes. Prominent reticulonodular opacity towards the right chaim ng apex with several associated calcifications, may represent scarring/post treatment changes. This e xtends laterally and inferiorly, and there is a small focus of lung herniation between the right fift h and sixth ribs. Additional mild scarring towards the right lung base with blunting of the costophre inge angle apparently due to pleural thickening. A few small nodular densities in the right lower lobe , largest 9 x 8 mm image 41 series 4 appears somewhat spiculated. Left lung is relatively clear. No s izable effusion or pneumothorax bilaterally. AIRWAY: Central airways appear patent with small amounts of mucus secretion along the wall of the mid trachea. MUSCULOSKELETAL: Moderate degenerative changes throughout the thoracic spine. Mild height loss and a nterior wedging L1 with broad-based Schmorl's node along the superior endplate and no definite fractu re lucency seen, likely chronic. SOFT TISSUES: Heterogeneously dense breast parenchyma bilaterally. There is a collection of surgical clips seen within the right breast and axilla. No definite mass or adenopathy can be appreciated. UPPER ABDOMEN: Partial eventration along the right hemidiaphragm. Severely atrophic left kidney. Stom ach is nondistended and questionably thickening of the gastric wall. IMPRESSION: 1. Limited unenhanced study. 2. Moderate pulmonary emphysematous changes. 3. A few small nodular densities in the right lower lobe, largest 9 x 8 MM appears somewhat spiculat ed. Recommend close follow-up, this may include PET/CT for metabolic evaluation. CT follow-up also re commended. 4. Prominent reticulonodular opacity towards the right lung apex with several associated calcificati ons, may represent scarring/post treatment changes. 5. Small focus of lung herniation between the right fifth and sixth ribs. 6. Additional mild scarring towards the right lung base with blunting of the costophrenic angle appa rently due to pleural thickening. 7. Heart size upper normal. Moderate coronary arterial calcifications. Small to moderate size perica rdial effusion. 8. Aorta and branches show diffuse calcific plaque. In the upper abdomen, there is heavy, dense calc ification of the aorta near the level of the diaphragmatic hiatus which appears to involve the entire vessel and the aorta may be occluded. 9. Severe left renal atrophy. 10. Small hiatal hernia with a thickened appearance of the distal esophageal wall, and wall thickeni ng of the stomach cannot be excluded. This could represent nonspecific esophagitis, with neoplasia no t excluded. 11. Other chronic and likely incidental findings, as described above.
== END | disposition home or self-care (01) ==
LOC: RADCTMAIN 09:30
PROVIDERS: ATTEND Internal Medicine
DX: I31.39 Other pericardial effusion (noninflammatory) (principal); J43.9 Emphysema, unspecified; I70.0 Atherosclerosis of aorta; R04.2 Hemoptysis; K63.89 Other specified diseases of intestine; N26.1 Atrophy of kidney (terminal); K44.9 Diaphragmatic hernia without obstruction or gangrene; R91.8 Other nonspecific abnormal finding of lung field; I25.10 Atherosclerotic heart disease of native coronary artery without angina pectoris; J98.4 Other disorders of lung
CPT/HCPCS: 36415; 71250; 82565; 84520

== ENCOUNTER → 2023-11-10 | Outpatient (CLI) | payer MEDICARE, OTHER ==
--- NOTE | 2023-11-11 14:42 | CT ---
EXAMINATION TYPE: CT chest wo con DATE OF EXAM: 11/10/2023 COMPARISON: HISTORY: abnormal lung field CT DLP: 334 mGycm, Automated exposure control for dose reduction was used. CONTRAST: None TECHNIQUE: Axial images were obtained at 5 mm thick sections. Reconstructed images are reviewed on yeppt computer in the coronal plane. FINDINGS: Portion of the thyroid visualized is normal. There is irregular density posterior right upper lobe. This measures approximately 3.2 x 1.7 cm. Seri es 4 image 13. This was present previously and may be related to prior surgery. There is right lower lobe nodule not identified currently. Emphysematous changes are present. No enlarged mediastinal or hilar adenopathy is evident. The ascending aorta diameter at the level o f the main pulmonary artery is 3.3 cm. The main pulmonary artery diameter at the bifurcation is 2.[address] sections are obtained through the upper abdomen. Abdomen is essentially unremarkable. IMPRESSION: 1. Stable CT chest. No suspicious changes to suggest new or suspicious change
== END | disposition home or self-care (01) ==
LOC: RADCTMAIN 10:07
PROVIDERS: ATTEND Internal Medicine
DX: R91.8 Other nonspecific abnormal finding of lung field (principal)
CPT/HCPCS: 71250

== ENCOUNTER 2023-12-16 11:51 | Emergency (ER) | payer MEDICARE, OTHER ==
[2023-12-16 13:00] VITALS: TEMP 98.1
--- NOTE | 2023-12-16 13:52 | ED ---
Weakness HPI - General Chief complaint: Weakness Stated complaint: José Miguel leg weakness,abd pain Time Seen by Provider: 12/16/23 13:52 Source: patient, RN notes reviewed Mode of arrival: ambulatory Limitations: no limitations - History of Present Illness Initial comments: 73-year-old female with history of aortic stenosis presenting to the ER with worsening weakness of bilateral extremities for 2 days. Patient reports leg weakness has been progressing for 1 year. Patient reports she was told that the weakness is caused by aortic stenosis and has a consultation for surgery this upcoming Tuesday. She reports the weakness is worsening and walking has become more difficult. Reports sensation of tingling in bilateral legs. Denies urinary incontinence, abdominal pain, nausea, vomiting, fever, dysuria, urinary urgency or frequency, chest pain, shortness of breath. She lives with her [id number] however she takes care of herself at home. Reports she drove herself here today. - Related Data Home Medications Medication Instructions Recorded Confirmed Alendronate Sodium 70 mg PO WE 10/23/18 12/16/23 Aspirin [Adult Low Dose Aspirin EC] 81 mg PO DAILY 10/23/18 12/16/23 Atorvastatin [Lipitor] 40 mg PO HS 10/23/18 12/16/23 Losartan Potassium [Cozaar] 25 mg PO DAILY 10/23/18 12/16/23 carvediloL 12.5 mg PO BID 10/23/18 12/16/23 amLODIPine [Norvasc] 10 mg PO DAILY 06/09/23 12/16/23 Albuterol Sulfate [Ventolin HFA] 2 puff INHALATION RT-Q6H PRN 12/16/23 12/16/23 Cholecalciferol [Vitamin D3 (25 25 mcg PO DAILY 12/16/23 12/16/23 Mcg = 1000 Iu)] Fluticasone/Umeclidin/Vilanter 1 puff INHALATION RT-DAILY 12/16/23 12/16/23 [Trelemason Ellipta 200-62.5-25] Iron 28mg 28 mg PO BID 12/16/23 12/16/23 Letrozole [Femara] 2.5 mg PO DAILY 12/16/23 12/16/23 Omeprazole 40 mg PO DAILY 12/16/23 12/16/23 Oxybutynin ER [Ditropan XL] 15 mg PO DAILY 12/16/23 12/16/23 Spironolactone [Aldactone] 50 mg PO DAILY 12/16/23 12/16/23 calcitrioL [Rocaltrol] 0.25 mcg PO WESA 12/16/23 12/16/23 Allergies Allergy/AdvReac Type Severity Reaction Status Date / Time codeine Allergy Unknown Rash/Hives Verified 12/16/23 15:19 niacin Allergy Rash/Hives Verified 12/16/23 15:19 Review of Systems ROS Statement: Those systems with pertinent positive or pertinent negative responses have been documented in the HPI. ROS Other: All systems not noted in ROS Statement are negative. Past Medical History Past Medical History: CVA/TIA, GERD/Reflux, Hyperlipidemia, Hypertension, Osteoarthritis (OA), Pneumonia, Renal Disease Additional Past Medical History / Comment(s): CVA (DECEMBER 2014)- WEAKNESS RIGHT HAND, STRESS INCONTINENCE, WEARS PAD. Osteoporosis(L2). 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 BSO, later ALE. Lung biopsy- rt upper lobectomy for mass that turned out to be benign, egd/colonosopy, lt eardrum repair., cataracts, D&C. Past Anesthesia/Blood Transfusion Reactions: No Reported Reaction Past Psychological History: No Psychological Hx Reported Smoking Status: Former smoker Past Alcohol Use History: None Reported Past Drug Use History: None Reported - Past Family History Father Family Medical History: Cancer Additional Family Medical History / Comment(s): from brain tumor age 53. Paternal grandfather head colon CA. Mother Family Medical History: Cancer, Diabetes Mellitus, Myocardial Infarction ([place]) Additional Family Medical History / Comment(s): stomach cancer Sister(s) Family Medical History: Cancer Additional Family Medical History / Comment(s): x2 breast cancer General Exam Limitations: no limitations General appearance: alert, in no apparent distress Head exam: Present: atraumatic, normocephalic, normal inspection Eye exam: Present: normal appearance, PERRL, EOMI. Absent: scleral icterus, conjunctival injection, periorbital swelling ENT exam: Present: normal exam, mucous membranes moist Neck exam: Present: normal inspection. Absent: tenderness, meningismus, lymphadenopathy Respiratory exam: Present: normal lung sounds bilaterally. Absent: respiratory distress, wheezes, rales, rhonchi, stridor Cardiovascular Exam: Present: regular rate, normal rhythm, normal heart sounds. Absent: systolic murmur, diastolic murmur, rubs, gallop, clicks GI/Abdominal exam: Present: soft, normal bowel sounds. Absent: distended, tenderness, guarding, rebound, rigid Extremities exam: Present: normal inspection, full ROM, normal capillary refill, other (Full strength and sensation of bilateral lower extremities. Dorsalis pedis pulses intact bilaterally. No edema). Absent: tenderness, pedal edema, joint swelling, calf tenderness Left Hip exam: Present: normal inspection, full ROM. Absent: tenderness, swelling Upper Leg exam: Present: normal inspection, full ROM. Absent: tenderness, swelling Knee exam: Present: normal inspection, full ROM. Absent: tenderness, swelling Lower Leg exam: Present: normal inspection, full ROM. Absent: tenderness, swelling Ankle exam: Present: normal inspection, full ROM. Absent: tenderness, swelling Foot/Toe exam: Present: normal inspection, full ROM. Absent: tenderness, swelling Neurovascular tendon exam: Present: no vascular compromise. Absent: pulse deficit, abnormal cap refill, sensory deficit Right Hip exam: Present: normal inspection, full ROM. Absent: tenderness, swelling Upper Leg exam: Present: normal inspection, full ROM. Absent: tenderness, swelling Knee exam: Present: normal inspection, full ROM. Absent: tenderness, swelling Lower Leg exam: Present: normal inspection, full ROM. Absent: tenderness, swelling Ankle exam: Present: normal inspection, full ROM. Absent: tenderness, swelling Foot/Toe exam: Present: normal inspection, full ROM. Absent: tenderness, swelling Neurovascular tendon exam: Present: no vascular compromise. Absent: pulse deficit, abnormal cap refill, sensory deficit Course Vital Signs 12/16/23 12/16/23 12:05 16:10 Temperature 98.1 F Pulse Rate 68 74 Respiratory 20 18 Rate Blood Pressure 142/66 141/60 O2 Sat by Pulse 96 98 Oximetry EKG Findings - EKG Results: EKG: interpreted by ERMD (EKG reveals sinus bradycardia with no ST changes. Ventricular rate 59 bpm, ME interval 144, QRS duration 82, QT/QTc 443/441) Medical Decision Making - Medical Decision Making Was pt. sent in by a medical professional or institution (YANELI Knox, BLOW PIT OPERATOR, urgent care, hospital, or care home...) When possible be specific @ -No Did you speak to anyone other than the patient for history (EMS, parent, family, police, friend...)? What history was obtained from this source @ -No Did you review nursing and triage notes (agree or disagree)? Why? @ -I reviewed and agree with nursing and triage notes Were old charts reviewed (outside hosp., previous admission, EMS record, old EKG, old radiological studies, urgent care reports/EKG's, care home records)? Report findings @ -No old charts were reviewed Differential Diagnosis (chest pain, altered mental status, abdominal pain women, abdominal pain men, vaginal bleeding, weakness, fever, dyspnea, syncope, headache, dizziness, GI bleed, back pain, seizure, CVA, palpatations, mental health, musculoskeletal)? @ -Differential Weakness: Hypoglycemia, shock, sepsis, hyponatremia, anemia, infection, [place], ETOH, adverse medicine reaction, overdose, stroke, this is not meant to be an all-inclusive list. EKG interpreted by me (3pts min.). @ -As above X-rays interpreted by me (1pt min.). @ -None done CT interpreted by me (1pt min.). @ -None done U/S interpreted by me (1pt. min.). @ -None done What testing was considered but not performed or refused? (CT, X-rays, U/S, labs)? Why? @ -None What meds were considered but not given or refused? Why? @ -None Did you discuss the management of the patient with other professionals (professionals i.e. YANELI Knox, BLOW PIT OPERATOR, lab, RT, psych nurse, social media marketing specialist, pharmacovigilance specialist, teacher, bank operations officer, major case detective)? Give summary @ -No Was smoking cessation discussed for >3mins.? @ -No Was critical care preformed (if so, how long)? @ -No Were there social determinants of health that impacted care today? How? (Ho melessness, low income, unemployed, alcoholism, drug addiction, transportation, low edu. Level, literacy, decrease access to med. care, group home, rehab)? @ -No Was there de-escalation of care discussed even if they declined (Discuss DNR or withdrawal of care, Hospice)? DNR status @ -No What co-morbidities impacted this encounter? (DM, HTN, Smoking, COPD, CAD, Cancer, CVA, ARF, Chemo, Hep., AIDS, mental health diagnosis, sleep apnea, morbid obesity)? @ -None Was patient admitted / discharged? Hospital course, mention meds given and route, prescriptions, significant lab abnormalities, going to OR and other pertinent info. @ -Patient was discharged. Patient was seen and evaluated for bilateral leg weakness worsening over the past 2 weeks. She states this has been an ongoing issue for about a year. There are no red flag symptoms present. Patient is neurovascularly intact. EKG unremarkable. Urine is unremarkable. Labs are remarkable for decreased kidney function. Patient offered admission for PT/OT with nephrology consult for RAYRAY on CKD. Patient declines admission at this time and states she would prefer to follow-up with her radio station manager outpatient. Patient is able to stand up and walk with no issues. Strict return/alarm symptoms discussed with patient in detail and patient shows understanding and agrees to plan. Patient discharged in stable condition. Case discussed with Dr. Roth Undiagnosed new problem with uncertain prognosis? @ -No Drug Therapy requiring intensive monitoring for toxicity (Heparin, Nitro, Insulin, Cardizem)? @ -No Were any procedures done? @ -No Diagnosis/symptom? @ -Bilateral leg weakness Acute, or Chronic, or Acute on Chronic? @ -Chronic Uncomplicated (without systemic symptoms) or Complicated (systemic symptoms)? @ -Uncomplicated Side effects of treatment? @ -No Exacerbation, Progression, or Severe Exacerbation? @ -No Poses a threat to life or bodily function? How? (Chest pain, [place], [place], pneumonia, PE, COPD, DKA, ARF, appy, cholecystitis, CVA, Diverticulitis, Homicidal, Suicidal, threat to staff... and all critical care pts) @ -No - Lab Data Result diagrams: 12/16/23 14:40 12/16/23 14:40 Lab Results 12/16/23 12/16/23 12/16/23 Range/Units 14:40 14:40 14:50 WBC 13.0 H (3.8-10.6) k/uL RBC 3.26 L (3.80-5.40) m/uL Hgb 9.7 L (11.4-16.0) gm/dL Hct 29.0 L (34.0-46.0) % MCV 89.0 (80.0-100.0) fL MCH 29.6 (25.0-35.0) pg MCHC 33.3 (31.0-37.0) g/dL RDW 14.4 (11.5-15.5) % Plt Count 156 (150-450) k/uL MPV 11.4 Neutrophils % (Manual) 87 % Lymphocytes % (Manual) 11 % Monocytes % (Manual) 2 % Neutrophils # BLOW PIT OPERATOR Neutrophils # (Manual) 11.30 H (1.3-7.7) k/uL Lymphocytes # (Manual) 1.43 (1.0-4.8) k/uL Monocytes # (Manual) 0.26 (0-1.0) k/uL Nucleated RBCs 0 (0-0) /100 WBC Manual Slide Review Performed Sodium 135 L (137-145) mmol/L Potassium 4.9 (3.5-5.1) mmol/L Chloride 106 (98-107) mmol/L Carbon Dioxide 18 L (22-30) mmol/L Anion Gap 11 mmol/L BUN 53 H (7-17) mg/dL Creatinine 3.23 H (0.52-1.04) mg/dL Est GFR (CKD-EPI)AfAm 16 (>60 ml/min/1.73 sqM) Est GFR (CKD-EPI)NonAf 14 (>60 ml/min/1.73 sqM) Glucose 90 (74-99) mg/dL Plasma Lactic Acid Bronson (0.7-2.0) mmol/L Calcium 8.3 L (8.4-10.2) mg/dL Total Bilirubin 1.4 H (0.2-1.3) mg/dL AST 22 (14-36) U/L ALT 16 (4-34) U/L Alkaline Phosphatase 86 (38-126) U/L Total Protein 6.1 L (6.3-8.2) g/dL Albumin 3.2 L (3.5-5.0) g/dL Urine Color Light Yellow Urine Appearance Clear (Clear) Urine pH 5.5 (5.0-8.0) Ur Specific [place] 1.012 (1.001-1.035) Urine Protein 1+ H (Negative) Urine Glucose (UA) Negative (Negative) Urine Ketones Negative (Negative) Urine Blood Trace H (Negative) Urine Nitrite Negative (Negative) Urine Bilirubin Negative (Negative) Urine Urobilinogen <2.0 (<2.0) mg/dL Ur Leukocyte Esterase Small H (Negative) Urine RBC <1 (0-5) /hpf Urine WBC 11 H (0-5) /hpf Urine Bacteria Rare H (None) /hpf Hyaline Casts 7 H (0-2) /lpf Urine Mucus Rare H (None) /hpf 12/15/24 Range/Units 16:00 WBC (3.8-10.6) k/uL RBC (3.80-5.40) m/uL Hgb (11.4-16.0) gm/dL Hct (34.0-46.0) % MCV (80.0-100.0) fL MCH (25.0-35.0) pg MCHC (31.0-37.0) g/dL RDW (11.5-15.5) % Plt Count (150-450) k/uL MPV Neutrophils % (Manual) % Lymphocytes % (Manual) % Monocytes % (Manual) % Neutrophils # Neutrophils # (Manual) (1.3-7.7) k/uL Lymphocytes # (Manual) (1.0-4.8) k/uL Monocytes # (Manual) (0-1.0) k/uL Nucleated RBCs (0-0) /100 WBC Manual Slide Review Sodium (137-145) mmol/L Potassium (3.5-5.1) mmol/L Chloride (98-107) mmol/L Carbon Dioxide (22-30) mmol/L Anion Gap mmol/L BUN (7-17) mg/dL Creatinine (0.52-1.04) mg/dL Est GFR (CKD-EPI)AfAm (>60 ml/min/1.73 sqM) Est GFR (CKD-EPI)NonAf (>60 ml/min/1.73 sqM) Glucose (74-99) mg/dL Plasma Lactic Acid [place] 0.7 (0.7-2.0) mmol/L Calcium (8.4-10.2) mg/dL Total Bilirubin (0.2-1.3) mg/dL AST (14-36) U/L ALT (4-34) U/L Alkaline Phosphatase (38-126) U/L Total Protein (6.3-8.2) g/dL Albumin (3.5-5.0) g/dL Urine Color Urine Appearance (Clear) Urine pH (5.0-8.0) Ur Specific [place] (1.001-1.035) Urine Protein (Negative) Urine Glucose (UA) (Negative) Urine Ketones (Negative) Urine Blood (Negative) Urine Nitrite (Negative) Urine Bilirubin (Negative) Urine Urobilinogen (<2.0) mg/dL Ur Leukocyte Esterase (Negative) Urine RBC (0-5) /hpf Urine WBC (0-5) /hpf Urine Bacteria (None) /hpf Hyaline Casts (0-2) /lpf Urine Mucus (None) /hpf Disposition Clinical Impression: Leg weakness, CKD (chronic kidney disease) Disposition: HOME SELF-CARE Condition: Stable Instructions (If sedation given, give patient instructions): Chronic Kidney Disease (ED) Additional Instructions: Please follow-up with radio station manager in 1 to 3 days. Please return to the Emergency Department if symptoms worsen or any other concerns. Is patient prescribed a controlled substance at d/c from ED?: No Referrals: Carrie Ornelas MD [Primary Care Provider] - 1-2 days Time of Disposition: 16:35
[2023-12-16 15:08] LABS: HGB 9.7 gm/dL (11.4-16.0); MCH 29.6 pg (25.0-35.0); MCHC 33.3 g/dL (31.0-37.0); Mean Platelet Volume 11.4; Platelet Count 156 k/uL (150-450); RBC 3.26 m/uL (3.80-5.40); RDW 14.4 % (11.5-15.5)
[2023-12-16 15:13] LABS: Appearance,Urine Clear (Clear); Bacteria,Urine Rare /hpf; Bilirubin,Urine Negative (Negative); Blood,Urine Trace (Negative); Color,Urine Light Yellow; Glucose,Urine (UA) Negative (Negative); Hyaline Casts,Urine 7 /lpf (0-2); Ketones,Urine Negative (Negative); Leukocyte Esterase,Urine Small (Negative); Mucus,Urine Rare /hpf; Nitrite,Urine Negative (Negative); PH, Urine 5.5 (5.0-8.0); Protein,Urine 1+ (Negative); RBC,Urine <1 /hpf (0-5); Specific Gravity,Urine 1.012 (1.001-1.035); Urobilinogen,Urine <2.0 mg/dL (<2.0); WBC,Urine 11 /hpf (0-5)
[2023-12-16 15:33] LABS: ALT 16 U/L (4-34); AST 22 U/L (14-36); African American GFR (CKD) 16 (>60 ml/min/1.73 sqM); Albumin 3.2 g/dL (3.5-5.0); Alkaline Phosphatase 86 U/L (38-126); Anion Gap 11 mmol/L; Blood Urea Nitrogen 53 mg/dL (7-17); Calcium 8.3 mg/dL (8.4-10.2); Carbon Dioxide 18 mmol/L (22-30); Chloride 106 mmol/L (98-107); Glucose 90 mg/dL (74-99); Non-African American GFR(CKD) 14 (>60 ml/min/1.73 sqM); Potassium 4.9 mmol/L (3.5-5.1); Sodium 135 mmol/L (137-145); Total Bilirubin 1.4 mg/dL (0.2-1.3); Total Protein 6.1 g/dL (6.3-8.2)
[2023-12-16 15:51] LABS: Lymphocytes # (M) 1.43 k/uL (1.0-4.8); Monocytes # (M) 0.26 k/uL (0-1.0); Neutrophils % (M) 87 %; Nucleated Red Blood Cells 0 /100 WBC (0-0); Total Cells Counted 100
[2023-12-16 16:45] VITALS: BP 141/60; PULSE 74; RESP 18
== END 2023-12-16 16:49 | disposition home or self-care (01) ==
LOC: EC 11:51
DX: R53.1 Weakness (principal); R00.1 Bradycardia, unspecified; N18.9 Chronic kidney disease, unspecified; Z88.5 Allergy status to narcotic agent; Z88.8 Allergy status to other drugs, medicaments and biological substances; Z87.891 Personal history of nicotine dependence
CPT/HCPCS: 36415; 80053; 81001; 83605; 85025; 93005; 99285

== ENCOUNTER → 2024-01-04 | Outpatient (CLI) | payer MEDICARE, OTHER ==
--- NOTE | 2024-01-04 11:17 | XR ---
EXAMINATION TYPE: XR pelvis AP view DATE OF EXAM: 01/04/2024 CLINICAL HISTORY: pain TECHNIQUE: Single view the pelvis is submitted. FINDINGS: No evidence for fracture, dislocation or bony lesion. Joint spaces are well-preserved. S I joints appear symmetric. IMPRESSION: 1. No acute fracture or dislocation seen. ICD 10 NO FRACTURE, INITIAL EVALUATION
--- NOTE | 2024-01-04 11:18 | XR ---
EXAMINATION TYPE: XR abdomen 1V DATE OF EXAM: 01/04/2024 COMPARISON: NONE HISTORY: Pain TECHNIQUE: Single supine KUB image of the abdomen is obtained FINDINGS: Small bowel demonstrates no evidence for dilatation or air fluid levels. Gas and fecal material is seen in non-distended colon. No convincing evidence for pneumoperitoneum. No unusual calcifications. Basilar opacity suggested. Consider chest radiographs. The osseous structures are intact. IMPRESSION: 1. Overall nonobstructive bowel gas pattern.
== END | disposition home or self-care (01) ==
LOC: RADXRMAIN 10:51
PROVIDERS: ATTEND Nurse Practitioner Family
DX: R10.9 Unspecified abdominal pain (principal)
CPT/HCPCS: 72170; 74018

== ENCOUNTER → 2024-02-14 | Outpatient (CLI) | payer MEDICARE, OTHER | LOC: CPPFTMAIN 08:21 | PROVIDERS: ATTEND Surgery | DX: I35.0 Nonrheumatic aortic (valve) stenosis (principal); Z88.5 Allergy status to narcotic agent; Z87.891 Personal history of nicotine dependence; Z88.8 Allergy status to other drugs, medicaments and biological substances | CPT/HCPCS: 94060; 94726; 94729 ==

== ENCOUNTER → 2024-02-14 | Outpatient (CLI) | payer MEDICARE, OTHER ==
--- NOTE | 2024-02-16 09:49 | MM ---
Reason for Exam: Screening (asymptomatic). Last screening mammogram was performed 12 month(s) ago. Patient History: Menarche at age 16. Patient has no children. Left ovary removed at age 24. Right ovary removed at age 24. Hysterectomy at age 24. Postmenopausal. Breast cancer, right, age 68. Previous chest radiation therapy at age 68. Currently using Tamoxifen. 11/21/2018, Lumpectomy on the Right side. 02/04/2021, Benign Core Biopsy on the right side. 11/21/2018, Malignant Core Biopsy on the right side. 11/21/2018, Malignant Core Biopsy on the right side. 10/25/2018, Malignant Core Biopsy on the right side. 10/25/2018, Malignant Core Biopsy on the right side. 2018, Radiation Therapy on the right side. Maternal aunt had breast cancer, age 60. Sister had breast cancer, age 65. Mother had breast cancer, age 68. Prior Study Comparison: 08/03/2021 Right Diagnostic Mammogram, [facility]. 02/01/2022 Bilateral MG 3D diag mammo w/cad [facility], [facility]. 02/02/2023 Bilateral MG 3D diag mammo w/cad [facility], [facility]. Tissue Density: The breasts are heterogeneously dense, which may obscure small masses. Findings: Analyzed By CAD. There is no suspicious group of microcalcifications or new suspicious mass in either breast. Stable postoperative distortion right breast. Overall Assessment: Benign, BI-RAD 2 Management: Screening Mammogram of both breasts in 1 year. . Patient should continue monthly self-breast exams. A clinical breast exam by your physician is recommended on an annual basis. This exam should not preclude additional follow-up of suspicious palpable abnormalities. Note on Meaghan scores and lifetime risk: 1. A Meaghan score greater than 3% is considered moderate risk. If this is the case, consider specialist referral to assess eligibility for a risk reducing agent. 2. If overall lifetime risk for the development of breast cancer is 20% or higher, the patient may qualify for future screening with alternating mammogram and breast MRI. Electronically signed and approved by: Stephan Moss M.D. Radiologis
== END | disposition home or self-care (01) ==
LOC: RADMAMWWP 07:55
PROVIDERS: ATTEND Internal Medicine Hematology & Oncology
DX: Z12.31 Encounter for screening mammogram for malignant neoplasm of breast (principal); Z78.0 Asymptomatic menopausal state; Z80.3 Family history of malignant neoplasm of breast; R92.333 Mammographic heterogeneous density, bilateral breasts
CPT/HCPCS: 77063; 77067

== ENCOUNTER → 2024-03-30 | Day surgery (SDC) | payer MEDICARE, OTHER ==
[~2024-03-30] MED LIST changes: -LACTATED RINGERS 1,000 ML IV SCH; +SODIUM CHLORIDE 0.9% 500 ML 500 ML in EMPTY BAG 1 BAG IV PRN
[2024-03-30 07:35] VITALS: RESP 16; TEMP 98
[2024-03-30 07:55] VITALS: BP 195/85; PULSE 64
--- NOTE | 2024-03-30 08:13 | OP ---
OPERATIVE REPORT DATE OF SERVICE : PROCEDURE PERFORMED: Left-sided thoracentesis. PREOPERATIVE DIAGNOSIS: Large left pleural effusion. POSTOPERATIVE DIAGNOSIS: Large left pleural effusion. ANESTHESIA USED: 2 mL of 1% lidocaine. DESCRIPTION OF PROCEDURE: The patient was placed in a sitting upright position, the area below the left scapula, which was already marked by ultrasound and the marking was at the level of the 9th intercostal space and tip of the scapula. The area was locally anesthetized, and a standard 26-gauge needle was inserted at the same site of the marking, however, multiple attempts could not localize the fluid. Then moved up higher above the marking of the ultrasound marking, it was 1 space higher, the area was again locally anesthetized, a 26-gauge needle inserted at the same site, advanced into the pleural space. Fluid was localized easily. Then a small tiny incision was made, a thoracentesis catheter and needle were inserted at the same site advanced into the pleural space. Fluid was obtained and I was able to drain about 1100 mL of gabriel colored fluid from the left pleural space. Fluid was sent for different diagnostic studies, procedure was well tolerated, no immediate complications noted, chest x-ray postoperatively showed significant improvement of the fluid and residual small pleural effusion was noted, but there was no evidence of any significant or clinically significant pneumothorax. Again, fluid was sent for different diagnostic studies. MMODL / IJN: [id number] /
--- NOTE | 2024-03-30 09:26 | XR ---
EXAMINATION TYPE: XR chest 1V portable DATE OF EXAM: 03/30/2024 Comparison: 03/21/2024 Clinical History: 73-year-old female status post left thoracentesis, exam room [address] floor Findings: Left heart margin obscured by adjacent pleural parenchymal opacity. There is a small to moderate left pleural effusion which persists but has decreased in the interval. No appreciable pneumothorax. Foca l right basilar opacity is unchanged. Surgical clips right breast and right axilla. Impression: 1. Residual small to moderate left pleural effusion with adjacent atelectasis and/or consolidation, d ecreased following thoracentesis. No appreciable pneumothorax. 2. Chronic pleural parenchymal scarring at the right base.
[2024-03-30 20:50] LABS: Appearance,BF Clear (Clear)
[2024-03-30 20:51] LABS: Cholesterol,BF Source Pleural Fluid; Cholesterol,Body Fluid 28 mg/dL; Glucose, BF Source Pleural Fluid; Glucose, Body Fluid 95 mg/dL; LDH, Body Fluid Source Pleural Fluid; T. Protein, Body Fluid Source Pleural Fluid; Total Protein, Body Fluid 2620 mg/dL
== END ==
LOC: PROCWHC3 07:19
PROVIDERS: ATTEND Internal Medicine
DX: J90 Pleural effusion, not elsewhere classified
CPT/HCPCS: 32554; 71045; 82465; 82945; 83615; 84157; 87070; 87075; 87116; 87205; 87206; 89050

== ENCOUNTER → 2024-03-30 | Outpatient (CLI) | payer MEDICARE ==
--- NOTE | 2024-03-30 12:52 | US ---
EXAMINATION TYPE: US chest DATE OF EXAM: 03/30/2024 COMPARISON: 03/21/2024 CLINICAL INDICATION: Female, 73 years old with history of J90 PLEURAL EFFUSION, NOT ELSEWHERE CLASSIF IED; left chest marking TECHNIQUE: Targeted ultrasound of the posterior lower left hemithorax EXAM MEASUREMENTS: Left Pleural Effusion pocket size: 9.9 cm Left skin surface to fluid distance: 2.1 cm Left side marked for possible thoracentesis outside the dept. Pulmonologists are able to review the images in the patient?s EMR. IMPRESSIONS: Moderate to large left pleural effusion with marking performed.
== END | disposition home or self-care (01) ==
LOC: RADUSWWP 06:56
PROVIDERS: ATTEND Internal Medicine
DX: J90 Pleural effusion, not elsewhere classified (principal)
CPT/HCPCS: 76604

== ENCOUNTER → 2024-06-29 | Outpatient (CLI) | payer MEDICARE, OTHER ==
[2024-06-29 19:13] LABS: Magnesium 1.3 mg/dL (1.5-2.4); Phosphorus 3.5 mg/dL (2.4-5.1); Uric Acid 6.7 mg/dL (2.9-7.7)
[2024-06-29 19:14] LABS: % Iron Saturation 17.04 (12.00-45.00); ALT 19 U/L (8-44); AST 20 U/L (13-35); Albumin 4.2 g/dL (3.8-4.9); Albumin/Globulin Ratio 1.31 Ratio (1.60-3.17); Alkaline Phosphatase 118 U/L (41-126); BUN/Creat Ratio 28.08 Ratio (12.00-20.00); Blood Urea Nitrogen 33.7 mg/dL (9.0-27.0); Calcium 9.1 mg/dL (8.7-10.3); Carbon Dioxide 21.8 mmol/L (21.6-31.8); Chloride 108 mmol/L (96-109); Globulin 3.2 g/dL (1.6-3.3); Glucose 126 mg/dL (70-110); Iron 46 UG/DL (50-170); Potassium 3.9 mmol/L (3.5-5.5); Sodium 143 mmol/L (135-145); Total Bilirubin 0.4 mg/dL (0.3-1.2); Total Iron Binding Capacity 270 UG/DL (228-460); Total Protein 7.4 g/dL (6.2-8.2)
[2024-06-29 20:21] LABS: Basophils # (A) 0.04 X 10*3/uL (0.00-0.10); Basophils % (A) 0.5 %; Eosinophils # (A) 0.13 X 10*3/uL (0.04-0.35); Eosinophils % (A) 1.5 %; HCT 36.6 % (37.2-46.3); HGB 11.7 g/dL (12.0-15.0); Lymphocytes # (A) 1.51 X 10*3/uL (0.90-5.00); Lymphocytes % (A) 17.4 %; MCH 27.5 pg (27.0-32.0); MCV 86.1 FL (80.0-97.0); Monocytes % (A) 5.8 %; NRBC Per 100 WBC 0 X 10*3/uL (0.00-0.01); Neutrophils # (A) 6.47 X 10*3/uL (1.80-7.70); Neutrophils % (A) 74.5 %; Platelet Count 240 X 10*3/uL (140-440); RBC 4.25 X 10*6/uL (4.10-5.20); RDW 15.7 % (11.5-14.5); WBC 8.68 X 10*3/uL (4.50-10.00)
[2024-06-30 05:16] LABS: Appearance,Urine Clear (Clear); Bilirubin,Urine Negative (Negative); Blood,Urine Negative (Negative); Color,Urine Yellow (Yellow); Ketones,Urine Negative (Negative); Nitrite,Urine Negative (Negative); PH, Urine 5.5; Specific Gravity,Urine 1.021 (1.001-1.030)
== END | disposition home or self-care (01) ==
LOC: LABWHC1 12:28
PROVIDERS: ATTEND Nurse Practitioner Family
DX: N39.0 Urinary tract infection, site not specified (principal); N18.31 Chronic kidney disease, stage 3a; E55.9 Vitamin D deficiency, unspecified; D63.1 Anemia in chronic kidney disease; N25.81 Secondary hyperparathyroidism of renal origin; M10.9 Gout, unspecified
CPT/HCPCS: 36415; 80053; 81003; 82306; 82728; 83540; 83550; 83735; 83970; 84100; 84550; 85025

== ENCOUNTER → 2024-08-07 | Outpatient (CLI) | payer MEDICARE, OTHER ==
--- NOTE | 2024-08-07 09:27 | US ---
EXAMINATION TYPE: US renal artery duplex complete DATE OF EXAM: 08/07/2024 COMPARISON: NONE CLINICAL INDICATION: Female, 73 years old with history of N18.31 CHR KIDNEY DISEASE; HTN limited yudy ent unable to hold breath. Left renal kidney atropic not functioning for years per patient. TECHNIQUE: Grayscale, color Doppler and spectral Doppler imaging of the bilateral renal arteries and kidneys. FINDINGS: MEASUREMENTS: RENAL SIZE: Right Kidney: 9.7 x 4.0 x 3.9 cm Left Kidney: 5.6 x 2.0 x 2.0 cm Right Kidney: No hydronephrosis or lesions seen Left Kidney: Atrophic no color flow visualized. Abd Aorta: Calcified RESISTANCE INDEX Right: 0.46 RA/AO RATIO (< 3.5 ) Right: 2.4 RENAL ARTERY VELOCITY ( < 180 cm/s) Right: 394.2 Couple of tiny cortical renal cysts are present on the small left kidney Appropriate color Doppler fl ow and spectral waveforms to the kidneys bilaterally. IMPRESSION: 1. Marked increase right renal artery velocities. No significant ratio elevation evident however. 2. Left kidney appears atrophic [facility], , 08/07/2024 9:24 AM
== END | disposition home or self-care (01) ==
LOC: RADUSWWP 07:52
PROVIDERS: ATTEND Internal Medicine Nephrology
DX: N18.31 Chronic kidney disease, stage 3a (principal); I12.9 Hypertensive chronic kidney disease with stage 1 through stage 4 chronic kidney disease, or unspecified chronic kidney disease
CPT/HCPCS: 93975

== ENCOUNTER → 2024-08-23 | Outpatient (CLI) | payer MEDICARE, OTHER ==
[2024-08-23 14:45] LABS: Basophils # (A) 0.05 X 10*3/uL (0.00-0.10); Basophils % (A) 0.5 %; HCT 33.4 % (37.2-46.3); HGB 10.3 g/dL (12.0-15.0); Lymphocytes # (A) 1.26 X 10*3/uL (0.90-5.00); Lymphocytes % (A) 12.6 %; MCH 27.2 pg (27.0-32.0); MCHC 30.8 g/dL (32.0-37.0); MCV 88.4 FL (80.0-97.0); Mean Platelet Volume 11.9 FL (9.5-12.2); Monocytes # (A) 0.56 X 10*3/uL (0.20-1.00); Monocytes % (A) 5.6 %; NRBC Per 100 WBC 0 X 10*3/uL (0.00-0.01); Neutrophils # (A) 7.99 X 10*3/uL (1.80-7.70); Neutrophils % (A) 79.7 %; Platelet Count 280 X 10*3/uL (140-440); RBC 3.78 X 10*6/uL (4.10-5.20); RDW 16.5 % (11.5-14.5); WBC 10.02 X 10*3/uL (4.50-10.00)
[2024-08-23 14:58] LABS: BUN/Creat Ratio 18.91 Ratio (12.00-20.00); Blood Urea Nitrogen 20.8 mg/dL (9.0-27.0); Carbon Dioxide 24.9 mmol/L (21.6-31.8); Chloride 105 mmol/L (96-109); Glucose 97 mg/dL (70-110); Sodium 140 mmol/L (135-145)
[2024-08-23 14:59] LABS: ALT 15 U/L (8-44); AST 18 U/L (13-35); Albumin 3.8 g/dL (3.8-4.9); Albumin/Globulin Ratio 1.19 Ratio (1.60-3.17); Alkaline Phosphatase 112 U/L (41-126); Calcium 9.2 mg/dL (8.7-10.3); Globulin 3.2 g/dL (1.6-3.3); Total Bilirubin 0.6 mg/dL (0.3-1.2)
[2024-08-23 15:24] LABS: Prothrombin Time 11.4 sec (9.9-11.9)
== END | disposition home or self-care (01) ==
LOC: LABWHC1 08:14
PROVIDERS: ATTEND Family Medicine
DX: Z01.812 Encounter for preprocedural laboratory examination (principal); I73.9 Peripheral vascular disease, unspecified
CPT/HCPCS: 36415; 80053; 85025; 85610

== ENCOUNTER → 2024-11-13 | Outpatient (CLI) | payer MEDICARE, OTHER ==
[2024-11-13 10:24] LABS: Appearance,Urine Clear (Clear); Bilirubin,Urine Negative (Negative); Blood,Urine Negative (Negative); Color,Urine Yellow (Yellow); Ketones,Urine Negative (Negative); Nitrite,Urine Negative (Negative); PH, Urine 5.5
[2024-11-13 10:41] LABS: Bacteria,Urine 1+ (None Seen); Basophils # (A) 0.06 X 10*3/uL (0.00-0.10); Basophils % (A) 0.7 %; Eosinophils # (A) 0.13 X 10*3/uL (0.04-0.35); Eosinophils % (A) 1.5 %; HCT 37.8 % (37.2-46.3); HGB 11.4 g/dL (12.0-15.0); Lymphocytes # (A) 1.31 X 10*3/uL (0.90-5.00); Lymphocytes % (A) 14.9 %; MCH 26.6 pg (27.0-32.0); MCHC 30.2 g/dL (32.0-37.0); MCV 88.3 FL (80.0-97.0); Mean Platelet Volume 12.2 FL (9.5-12.2); Monocytes # (A) 0.45 X 10*3/uL (0.20-1.00); Monocytes % (A) 5.1 %; NRBC Per 100 WBC 0 X 10*3/uL (0.00-0.01); Neutrophils # (A) 6.83 X 10*3/uL (1.80-7.70); Neutrophils % (A) 77.5 %; Platelet Count 325 X 10*3/uL (140-440); RBC 4.28 X 10*6/uL (4.10-5.20); RDW 15.4 % (11.5-14.5); WBC 8.81 X 10*3/uL (4.50-10.00)
[2024-11-13 10:43] LABS: Magnesium 1.9 mg/dL (1.5-2.4)
[2024-11-13 10:44] LABS: % Iron Saturation 28.91 (12.00-45.00); ALT 10 U/L (8-44); AST 16 U/L (13-35); Albumin/Globulin Ratio 1.18 Ratio (1.60-3.17); Alkaline Phosphatase 105 U/L (41-126); Blood Urea Nitrogen 18.8 mg/dL (9.0-27.0); Calcium 9.8 mg/dL (8.7-10.3); Carbon Dioxide 24.7 mmol/L (21.6-31.8); Chloride 105 mmol/L (96-109); Ferritin 66.8 ng/mL (10.0-291.0); Globulin 3.4 g/dL (1.6-3.3); Glucose 93 mg/dL (70-110); Iron 85 UG/DL (50-170); Phosphorus 3.8 mg/dL (2.4-5.1); Potassium 3.9 mmol/L (3.5-5.5); Sodium 142 mmol/L (135-145); Total Bilirubin 0.2 mg/dL (0.3-1.2); Total Iron Binding Capacity 294 UG/DL (228-460); Total Protein 7.4 g/dL (6.2-8.2); Uric Acid 5.9 mg/dL (2.9-7.7)
== END | disposition home or self-care (01) ==
LOC: LABWHC1 07:16
PROVIDERS: ATTEND Nurse Practitioner Family
DX: I12.9 Hypertensive chronic kidney disease with stage 1 through stage 4 chronic kidney disease, or unspecified chronic kidney disease (principal); N18.31 Chronic kidney disease, stage 3a; D63.1 Anemia in chronic kidney disease; E55.9 Vitamin D deficiency, unspecified; M10.9 Gout, unspecified; N39.0 Urinary tract infection, site not specified
CPT/HCPCS: 36415; 80053; 81001; 82088; 82306; 82728; 83540; 83550; 83735; 83835; 83970; 84100; 84244; 84550; 85025

== ENCOUNTER → 2024-11-21 | Outpatient (CLI) | payer MEDICARE, OTHER | END | disposition home or self-care (01) | LOC: LABWHC1 08:42 | PROVIDERS: ATTEND Nurse Practitioner Family | DX: I12.9 Hypertensive chronic kidney disease with stage 1 through stage 4 chronic kidney disease, or unspecified chronic kidney disease (principal); N18.31 Chronic kidney disease, stage 3a; D63.1 Anemia in chronic kidney disease; E55.9 Vitamin D deficiency, unspecified; N39.0 Urinary tract infection, site not specified; M10.9 Gout, unspecified | CPT/HCPCS: 36415; 82088; 84244 ==